=== PATIENT | female | born 1945 | race Caucasian/White ===

== ENCOUNTER 2020-06-05 13:32 | Outpatient (REF) | payer SELFPAY | END 2020-06-05 13:33 | disposition home or self-care (01) | LOC: HO.HAP 13:32 | PROVIDERS: Visit Provider Internal Medicine | DX: Z46.1 Encounter for fitting and adjustment of hearing aid (principal); H90.3 Sensorineural hearing loss, bilateral | CPT/HCPCS: 99499 ==

== ENCOUNTER 2020-07-12 14:28 | Outpatient (REF) | payer SELFPAY | END 2020-07-12 14:29 | disposition home or self-care (01) | LOC: HO.HAP 14:28 | PROVIDERS: Visit Provider Internal Medicine | DX: Z13.89 Encounter for screening for other disorder (principal) ==

== ENCOUNTER 2020-07-31 09:08 | Outpatient (REF) | payer SELFPAY ==
--- NOTE | 2020-07-31 09:20 | MHC.AU.P13 ---
Hearing Instrument Problem: Date of Visit: 07/31/20 Right Ear: Baseball Club Manager: Phonak Model: Bolero Q 70 SP BTE Serial Number: [id number] Repair Warranty: 01/29/2019 Battery Size: 13 Color: Champagne Tubin TT double bend Type of Mold: Microsonic Skeleton Left Ear: Baseball Club Manager: Phonak Model: Bolero Q 70 SP BTE Serial Number: [id number] RepairWarranty: 01/29/2019 Battery Size: 13 Color: Champagne TubinTT double bend Type of Mold: Microsonic Skeleton Summary: Patient brought in aids - tubings coming out of earmolds. Changed from 13T to 13TT double bend tubing - holding well - both aids amplifying clearly. Signature: Provider: BELLA Raza-HIS
== END 2020-07-31 09:09 | disposition home or self-care (01) ==
LOC: HO.HAP 09:08
PROVIDERS: Visit Provider Internal Medicine
DX: Z13.89 Encounter for screening for other disorder (principal)

== ENCOUNTER 2020-08-06 14:49 | Outpatient (REF) | payer MEDICARE, SELFPAY ==
[2020-08-06 16:09] LABS: Bilirubin Total 0.2 mg/dL (0.0-1.0)
[2020-08-06 16:12] LABS: Alanine Aminotransferase 16 U/L (0-31); Albumin Level 3.8 g/dL (3.5-5.0); Alkaline Phosphatase 103 U/L (39-117); Anion Gap 11 (12-20); Aspartate Amino Transferase 23 U/L (5-31); Blood Urea Nitrogen 19 mg/dL (9-16); Calcium 8.9 mg/dL (8.4-10.2); Carbon Dioxide 29 mmol/L (22-29); Chloride 108 mmol/L (96-108); Cholesterol 200 mg/dL; Estimated Glomerular Filt Rate > 60; Glucose Fasting 105 mg/dL (60-99); HDL Cholesterol 60 mg/dL; LDL Cholesterol Calculated 118 mg/dl; Potassium 4.5 mmol/L (3.3-5.1); Sodium 143 mmol/L (135-145); Total Protein 6.3 g/dL (6.5-8.0); Triglycerides 112 mg/dL
[2020-08-11 10:58] LABS: Vitamin D 25-OH, D2 <4 ng/mL; Vitamin D 25-OH, D3 54 ng/mL; Vitamin D 25-OH, Total 54 ng/mL (30-100)
== END 2020-08-06 14:50 | disposition home or self-care (01) ==
LOC: HO.LAB 14:49
PROVIDERS: PCP Internal Medicine; Visit Provider Internal Medicine
DX: E78.5 Hyperlipidemia, unspecified (principal); E55.9 Vitamin D deficiency, unspecified; Z13.1 Encounter for screening for diabetes mellitus
CPT/HCPCS: 36415; 80053; 80061; 82306

== ENCOUNTER 2021-04-17 11:27 | Outpatient (REF) | payer SELFPAY | END 2021-04-17 11:28 | disposition home or self-care (01) | LOC: HO.HAP 11:27 | PROVIDERS: Visit Provider Internal Medicine | DX: Z46.1 Encounter for fitting and adjustment of hearing aid (principal); H90.3 Sensorineural hearing loss, bilateral | CPT/HCPCS: 99499 ==

== ENCOUNTER 2021-06-04 11:10 | Outpatient (REF) | payer SELFPAY | END 2021-06-04 11:11 | disposition home or self-care (01) | LOC: HO.HAP 11:10 | PROVIDERS: Visit Provider Internal Medicine | DX: Z46.1 Encounter for fitting and adjustment of hearing aid (principal); H90.3 Sensorineural hearing loss, bilateral | CPT/HCPCS: 99499 ==

== ENCOUNTER 2021-07-05 10:04 | Emergency (ER) | payer MEDICARE, SELFPAY ==
--- NOTE | ~2021-07-05 | XR_ITS ---
EXAMINATION: XR SHOULDER, RIGHT CLINICAL INFORMATION: Status post fall. Pain. COMPARISON: None TECHNIQUE: Three views of the right shoulder. FINDINGS: Marked diffuse osteopenia is noted involving all the visualized bones. Comminuted impacted fractures are noted at the proximal right humerus. The glenohumeral alignment is intact. The acromioclavicular alignments are intact. XR/XR shoulder RT min 2V IMPRESSION: Comminuted fractures involving the proximal right humerus.
[2021-07-05 10:10] VITALS: BP 154/83; PULSE 97; RESP 18; TEMP 36.9; O2SAT 100; BMI 24.7
--- NOTE | 2021-07-05 10:37 | ED_ITS ---
HPI - Fall General Chief Complaint: Fall Stated Complaint: fall r arm inj Time Seen by Provider: 07/05/21 10:17 Source: patient Mode of arrival: ambulatory Limitations: no limitations History of Present Illness HPI Narrative: 75-year-old female with a history of high cholesterol here with reports of right shoulder pain after slip and fall on the ice 30 minutes prior to arrival. Patient denies head strike or loss of consciousness. The patient tells me that she landed on the posterior right shoulder and since then she has had pain with difficulty with range of motion. No numbness, tingling, weakness of the e xtremity. The patient is not on any anticoagulation Related Data Previous Rx's Medication Instructions Recorded acetaminophen 300 mg-codeine 15 mg 1 tab PO Q6H PRN #5 tab 07/05/21 tablet acetaminophen 325 mg tablet 650 mg PO Q4H PRN #20 tab 07/05/21 (Tylenol) Allergies Allergy/AdvReac Type Severity Reaction Status Date / Time seasonal Allergy Unknown Unknown Uncoded 07/26/20 13:22 Review of Systems Verdana 4l Review of Systems: Yes all other systems are reviewed and Verdana 4d are negative Verdana 4l Constitutional: Verdana 4d Constitutional: Verdana 4d Verdana 4d Reports no additional constitutional complaints, Denies body ache(s), Denies chills, Denies fever(s), Denies headache(s) and Denies weakness Verdana 4l Eyes: Verdana 4d Verdana 4d Eyes: Verdana 4d Reports no additional eye complaints and Denies change in vision Verdana 4l ENT: Verdana 4d Reports system reviewed and no additional complaints, except as documented, Denies dizziness, Denies headache(s), Denies nasal congestion, Denies nasal discharge and Denies neck pain Verdana 4l Cardiovascular: Verdana 4d Cardiovascular: Verdana 4d Verdana 4d Reports no additional cardiovascular complaints, Denies chest pain, Denies leg edema and Denies dyspnea Verdana 4l Respiratory: Verdana 4d Verdana 4d Respiratory: Verdana 4d Reports no additional respiratory complaints, Denies cough and Denies dyspnea Verdana 4l Gastrointestinal: Verdana 4d Gastrointestinal: Verdana 4d Verdana 4d Reports no additional gastrointestinal complaints, Denies abdominal pain, Denies diarrhea, Denies nausea and Denies vomiting Verdana 4l Genitourinary: Verdana 4d Verdana 4d Genitourinary: Verdana 4d Reports no additional female genitourinary complaints and Denies urinary incontinence Verdana 4l Musculoskeletal: Verdana 4d Musculoskeletal: Verdana 4d Verdana 4d Reports no additional musculoskeletal complaints, Denies back pain, Reports arthralgias, Reports joint swelling, Reports limited range of motion, Denies neck pain, Denies numbness and Denies tingling Verdana 4l Integumentary/Breasts: Verdana 4d Skin/Breast: Verdana 4d Verdana 4d Reports system reviewed and no additional complaints, except as docu and Denies rash Verdana 4l Neurologic: Verdana 4d Reports system reviewed and no additional complaints, except as documented, Denies Abnormal speech present, Denies dizziness, Denies headache(s), Denies numbness, Denies tingling and Denies weakness PMFSH Past Medical History Attestation statement: The following information was validated with the patient. Source: old records reviewed and nursing notes reviewed Medical History Dyslipidemia Hypovitaminosis D Leukopenia Surgical History No pertinent past surgical history Family History Family History Father No problems noted. Mother Hypertension Stroke Brother No problems noted. Brother No problems noted. Sister No problems noted. Sister No problems noted. Social History Social History Advance Directives: Yes Advance Directives Information Provided: No Advance Directives on File: No Physical Exam Verdana 4l Vital Signs: Verdana 4d Verdana 4d Vital Signs: Verdana 4d Verdana 4Bd Last Vital Signs Verdana 4d Bakery Assistant New 4d Bakery Assistant New 4d Temp 98.4 F 07/05/21 10:10 Bakery Assistant New 4d Pulse 97 07/05/21 10:10 Bakery Assistant New 4d Resp 17 07/05/21 11:36 BP 154/83 H 07/05/21 10:10 Pulse Ox 100 07/05/21 10:10 BMI result Body Mass Index 24.7 Const: General: cooperative, healthy appearing, comfortable and no acute distress Orientation/consciousness: patient oriented x3 Limitations: no limitations HENMT: Head: Yes normal to inspection Ears: hearing grossly normal bilaterally General nose exam: Normal external nose present Face and sinus: Yes normal facial exam Mouth: Normal oral and palatal mucosa present Throat: Yes posterior oropharynx normal Eyes: General: appearance normal, both eyes and all related structures Pupils: Equal, round and reactive pupils present Neck: Neck: Yes normal visual inspection Chest: Chest palpation & inspection: normal inspection of the chest Resp: Effort & Inspection: normal respiratory effort Auscultation: clear to ausc ultation bilaterally Cardio: Rate: regular rate Rhythm: regular rhythm Peripheral pulses: Peripheral pulses 2+ throughout GI: Inspection: Yes normal to inspection Palpation (GI): Soft to palpation and nontender Auscultation: normal bowel sounds Back/Spine/Pelvis: Thoracic/Lumbar Spine: thoracic and lumbar spine normal to inspection Skin: General skin exam: no rashes or lesions noted Neuro: General: patient oriented x3, no focal motor deficits and normal sensation to monofilament Cranial nerves: Yes Equal, round and reactive pupils present Cognition (Neuro): normal cognition Speech: No Abnormal speech present Gait exam (Neuro): Normal gait present Motor exam (neuro): 5/5 motor strength present throughout Extrem: Other: To the right shoulder there is a deformity. The shoulder appears to be anteriorly displaced. There is limited range of motion due to pain. There is tenderness over the proximal humerus. There is no ecchymosis, warmth or redness. Palpable axillary, radial and ulnar pulses are palpated General: Yes normal to inspection Course Course Course Narrative: 75-year-old female here with right shoulder pain after a slip and fall on the ice just prior to arrival Will check x-rays 1130-x-ray show a comminuted right proximal humeral fracture. No evidence of dislocation. Patient placed in a sling. Spoke to brother who will come pick the patient up. Reviewed rice. Reviewed follow-up with Orthopedics. Reviewed worrisome signs symptoms of when to return to the emergency department. Comfortable discharge home. Procedures Procedure Narrative Procedure Narrative: sling MDM - Fall MDM Narrative Medical decision making narrative: Fracture, dislocation, contusion Medical Records Attestation: I reviewed the patient's medical records. Lab Data Attestation: I reviewed the patient's lab results. Imaging Data shoulder xray: Attestation: I personally reviewed and interpreted this imaging study as follows: Radiologist's impression: FINDINGS: Marked diffuse osteopenia is noted involving all the visualized bones. Comminuted impacted fractures are noted at the proximal right humerus. The glenohumeral alignment is intact. The acromioclavicular alignments are intact.? XR/XR shoulder RT min 2V IMPRESSION: Comminuted fractures involving the proximal right humerus. Discharge Plan Discharge Clinical Impression: Fracture of proximal end of right humerus Patient Disposition: Home, Self-Care Instructions: Arm Fracture in Adults (ED) Additional Instructions: Use sling for comfort Ice to the affected area Take Tylenol every 4 hours for pain. Take the stronger Tylenol as needed Follow-up with Orthopedics Prescriptions: New acetaminophen [Tylenol] 325 mg tablet 650 mg PO Q4H PRN (Reason: pain) Qty: 20 0RF acetaminophen-codeine 300-15 mg tablet 1 tab PO Q6H PRN (Reason: pain) Qty: 5 0RF Referrals: Javier Victor MD [Physician] - 2 days Interventions: ED Discharge Assessment Last Done: 07/05/21 12:48 Discharge Date/Time: 07/05/21 12:49
[2021-07-05] MEDS: Acetaminophen 325 MG TABLET 975 MG PO (10:51)
--- NOTE | 2021-07-05 11:26 | PC.NURSE ---
PT STATES SHE WALKED HERE AFTER FALLING OUTSIDE THIS MORNING. SHE STATES SHE DOES NOT LIVE FAR AND HAS A BROTHER IN [place] THAT WE CAN ADD TO HER CONTACTS.
[2021-07-05 11:36] VITALS: RESP 17
== END 2021-07-05 12:49 | disposition home or self-care (01) ==
PROVIDERS: Emergency Provider Emergency Medicine; PCP Internal Medicine
DX: S42.201A Unspecified fracture of upper end of right humerus, initial encounter for closed fracture (principal); W00.0XXA Fall on same level due to ice and snow, initial encounter; Y93.01 Activity, walking, marching and hiking; Y92.9 Unspecified place or not applicable; Y99.9 Unspecified external cause status
CPT/HCPCS: 73030; 99283; 99284

== ENCOUNTER → 2021-07-14 12:59 | Outpatient (BNVA) | payer MEDICARE, SELFPAY | PROVIDERS: PCP Internal Medicine; Visit Provider Physician Assistant | DX: S42.201A Unspecified fracture of upper end of right humerus, initial encounter for closed fracture (principal) | CPT/HCPCS: 99202 ==

== ENCOUNTER 2021-07-24 10:25 | Outpatient (REF) | payer MEDICARE, SELFPAY ==
[2021-07-24 10:53] LABS: MANUAL DIFF FLAG NO
[2021-07-24 11:30] LABS: Basophils Absolute Auto 0.1 X10*3/uL (0.0-0.2); Basophils Percent Auto 1.1 % (0-2); Eosinophils Percent Auto 0.8 % (0-4); Hematocrit 41.8 % (37.0-47.0); Imm Gran Abs Auto 0.01 X10*3/uL (0.00-0.03); Imm Gran Pct Auto 0.2 % (0.0-0.4); Lymphocytes Absolute Auto 0.8 X10*3/uL (1.2-4.9); Lymphocytes Percent Auto 15.8 % (20-40); Mean Corpuscular HGB Conc 31.1 g/dl (31.0-35.0); Mean Corpuscular Hemoglobin 27.7 pg (27.0-33.0); Mean Corpuscular Volume 89.1 fL (80.0-98.0); Mean Platelet Volume 9.5 fL (9.4-12.3); Monocytes Absolute Auto 0.5 X10*3/uL (0.1-1.2); Monocytes Percent Auto 10.3 % (2-11); Neutrophils Absolute Auto 3.4 x10*3/uL (2.0-8.3); Neutrophils Percent Auto 71.8 % (45-73); Platelet Count 268 X10*3/uL (160-400); Red Blood Count 4.69 X10*6/uL (4.20-5.50); Red Cell Distribution Width 13.8 % (11.0-16.0); White Blood Count 4.8 X10*3/uL (4.8-10.8)
[2021-07-24 11:55] LABS: Alanine Aminotransferase 19 U/L (0-31); Alkaline Phosphatase 125 U/L (39-117); Anion Gap 14 (12-20); Aspartate Amino Transferase 22 U/L (5-31); Bilirubin Total 0.9 mg/dL (0.0-1.0); Blood Urea Nitrogen 15 mg/dL (9-16); Calcium 9.6 mg/dL (8.4-10.2); Carbon Dioxide 28 mmol/L (22-29); Chloride 103 mmol/L (96-108); Cholesterol 212 mg/dL; Estimated Glomerular Filt Rate > 60; Glucose Fasting 100 mg/dL (60-99); HDL Cholesterol 68 mg/dL; LDL Cholesterol Calculated 130 mg/dl; Potassium 4.6 mmol/L (3.3-5.1); Sodium 140 mmol/L (135-145); Total Protein 6.7 g/dL (6.5-8.0); Triglycerides 70 mg/dL
[2021-07-28 13:36] LABS: Vitamin D 25-OH, D2 <4 ng/mL; Vitamin D 25-OH, D3 50 ng/mL; Vitamin D 25-OH, Total 50 ng/mL (30-100)
== END 2021-07-24 10:26 | disposition home or self-care (01) ==
LOC: HO.LAB 10:25
PROVIDERS: PCP Internal Medicine; Visit Provider Internal Medicine
DX: D72.819 Decreased white blood cell count, unspecified (principal); E78.5 Hyperlipidemia, unspecified; E55.9 Vitamin D deficiency, unspecified
CPT/HCPCS: 36415; 80053; 80061; 82306; 85025

== ENCOUNTER 2021-08-15 07:58 | Outpatient (REF) | payer MEDICARE, SELFPAY ==
--- NOTE | ~2021-08-15 | XR_ITS ---
EXAMINATION: XR SHOULDER, RIGHT CLINICAL INFORMATION: Pain. COMPARISON: Radiographs dated 07/05/2021. TECHNIQUE: AP and scapular Y of the right shoulder are submitted. FINDINGS: There is bony demineralization. A comminuted fracture is redemonstrated of the right humeral neck. There is increased, now mild lateral angulation of the shaft relative to the head. There is no new significant callus formation. No dislocation is seen. No foreign body is seen. Mild pulmonary fibrosis is questioned. XR/XR shoulder RT min 2V IMPRESSION: A comminuted fracture is redemonstrated of the right humeral neck. There is increased, mild lateral angulation. No significant new callus formation is seen
== END 2021-08-15 07:59 | disposition home or self-care (01) ==
LOC: HO.HOSX 07:58
PROVIDERS: Visit Provider Physician Assistant
DX: S42.201D Unspecified fracture of upper end of right humerus, subsequent encounter for fracture with routine healing (principal)
CPT/HCPCS: 73030; 99212

== ENCOUNTER 2021-09-11 10:00 | Outpatient (RCR) | payer MEDICARE, SELFPAY ==
--- NOTE | 2021-08-07 11:21 | MHC.PT.EP ---
[facility] [place] Office [place] Office [place] Office [address] Charu Cardenas [address] [phone] F: [phone] F: [phone] F: [phone] F: [phone] Physical Therapy Plan of Care Date of Evaluation: Date of Surgery: Diagnosis: R humeral fx 07/05/21 Assessment: 76 y/o RHD female s/p R shoulder pain after lip and fall on ice on 07/05/21. She went to ED and x-rays taken showing R comminuted impacted humeral fracture. She was given a sling but only wore it for one day. Currently she has some pain and difficulty with dressing, reaching overhead, grooming and driving. Examination shows decreased R shoulder P/AAROM, decreased strength R UE (not formally tested), elbow AROM WNL, pain,and impaired postural awareness. Recommend PT 2x/week for 6 weeks to address impairments, implement HEP, and optimize functional mobility. She has been actively using her R UE and vacuuming - educated pt regarding precautions, healing timeline for fx, and purpose of PT. Frequency and Duration: The patient will be seen 2x/week for 6 week Short Term Goals: 3 weeks 1. Initiate HEP 2. Improve R shoulder flexion to 120 AA 3. Improve R shoulder flexion to 100 actively Half-Way Goals: 6 weeks 1. I with HEP and self management of sx 2. Pt will be able to groom and curl hair with pain < 3/10 3. Pt will be able to reach into overhead cabinets with pain < 3/10 Treatment Plan: Modalities to reduce pain, spasms and effusion. Manual therapy to restore motion and function. Therapeutic exercise to improve strength and flexibility. Neuromuscular re-education for posture and balance. Therapeutic activities to return to functional activities of daily living. Electronically signed by: Marry Pickering PT Please sign and return to therapist. Thank you for your referral.
--- NOTE | 2021-11-10 13:01 | MHC.PT.DC ---
[facility] [place] Office [place] Office [place] Office [address] Charu Cardenas [address] [phone] F: [phone] F: [phone] F: [phone] F: [phone] Physical Therapy Discharge Report Diagnosis: R humeral fx 07/05/21 Date of Surgery: 07/05/21 Date of Evaluation: 08/07/21 Date of Discharge: 11/10/21 Treatments to Date: 10 Cancellations to Date: 0 No Shows to Date: 0 Discharge Status: Independent with HEP Patient Elected to Stop Discharge Summary: Pt did not f/u with further visits following being placed on holds at 10 weeks post-fx. From last treatment note: We reviewed not lifting with her arm and only performing exercises to tolerance. We discussed holding PT until her next ortho visit and she will continue with I HEP, but again avoiding lifting. Electronically signed by: Marry Pickering PT Please sign and return to therapist. Thank you for your referral.
== END 2021-11-10 13:01 | disposition home or self-care (01) ==
LOC: HO.PT 10:00
PROVIDERS: PCP Internal Medicine; Visit Provider Physician Assistant
DX: S42.201D Unspecified fracture of upper end of right humerus, subsequent encounter for fracture with routine healing (principal)
CPT/HCPCS: 97110; 97140; 97161

== ENCOUNTER 2021-09-26 08:21 | Outpatient (REF) | payer MEDICARE, SELFPAY ==
--- NOTE | ~2021-09-26 | XR_ITS ---
EXAMINATION: XR shoulder RT min 2V CLINICAL INFORMATION: Reason for Exam M25.511 - Pain in right shoulder COMPARISON: 08/15/2021 and 07/05/2021 shoulder radiographs TECHNIQUE: Two views of the shoulder. XR/XR shoulder RT min 2V FINDINGS/IMPRESSION: Again seen is an impacted comminuted fracture of the humeral neck in similar alignment which demonstrates bridging bony callus formation laterally, however fracture margins remain distinct. Similar degenerative changes of the shoulder worst involving the acromioclavicular joint. There is a metallic pin seen overlying the distal aspect of the right clavicle, recommend correlation with any overlying material or interval trauma. Visualized portion of lung appears clear.
== END 2021-09-26 08:22 | disposition home or self-care (01) ==
LOC: HO.HOSX 08:21
PROVIDERS: Visit Provider Physician Assistant
DX: S42.201D Unspecified fracture of upper end of right humerus, subsequent encounter for fracture with routine healing (principal)
CPT/HCPCS: 73030; 99212

== ENCOUNTER 2022-03-17 10:41 | Outpatient (REF) | payer SELFPAY ==
--- NOTE | 2022-03-17 11:37 | MHC.AU.HFU ---
Hearing Instrument Follow-Up- Binaural Date of Visit: 03/17/22 Right Ear: Float Tender: Phonak Model: Bolero Q 70 SP BTE Serial Number: [id number] Repair Warranty: 01/29/2019 Battery Size: 13 Color: Champagne Tubin TT double bend Type of Mold: Microsonic Skeleton Dispensed By: [facility] Date of Fittin11/19/2014 Left Ear: Float Tender: Phonak Model: Bolero Q 70 SP BTE Serial Number: [id number] Repair Warranty: 01/29/2019: Battery Size: 13 Color: Champagne TubinTT double bend Type of Mold: Microsonic Skeleton Dispensed By: [facility] Date of Fittin11/19/2014 Follow-Up Summary: Performed hearing aid maintenance for both aids, changing tubing, cleaning contacts and microphones, both aids amplifying well. Patient paid $10.00. DISCUSSED THE FEE FOR SERVICE CHANGE IN EFFECT FOR NEXT VISIT so the next maintenance appointment charge will be $50.00 Patient reports increased feedback from the left aid. Otoscopy shows mostly occluding cerumen. Recommendations:Since there is a charge for cerumen removal, she will go to Dr. Yu'sahara for cerumen removal and a hearing test. She will then schedule an appointment for hearing aid reprogramming for which she was quoted at least $90.00 Diagnosis Code(s):Primary Diagnosis: H90.3 Bilateral Sensorineural Hearing Loss Services Performed:LEE Non-Quantity Charges: [facility] [place]EE Charge (V5299) Signature:Provider: Mahin Stewart, [facility]
== END 2022-03-17 10:42 | disposition home or self-care (01) ==
LOC: HO.HAP 10:41
PROVIDERS: Visit Provider Internal Medicine
DX: Z46.1 Encounter for fitting and adjustment of hearing aid (principal); H90.3 Sensorineural hearing loss, bilateral
CPT/HCPCS: 92700; V5299

== ENCOUNTER 2022-04-06 08:58 | Outpatient (REF) | payer SELFPAY | END 2022-04-06 08:59 | disposition home or self-care (01) | LOC: HO.HAP 08:58 | PROVIDERS: Visit Provider Internal Medicine | DX: Z46.1 Encounter for fitting and adjustment of hearing aid (principal); H90.3 Sensorineural hearing loss, bilateral; H61.23 Impacted cerumen, bilateral | CPT/HCPCS: 92700 ==

== ENCOUNTER 2022-05-26 12:26 | Outpatient (REF) | payer MEDICARE, SELFPAY ==
--- NOTE | 2022-05-26 16:54 | MHC.AU.HFU ---
Hearing Instrument Follow-Up- Binaural Date of Visit: 05/26/22 Right Ear: Phonak Bolero Q 70-SP BTE #[id number] Repair Warranty: 01/29/2019 Battery Size: 13 Color: Champagne Tubin TT double bend Type of Mold: Microsonic Skeleton !3T double bend Dispensed By: [facility] Date of Fittin11/19/2014 Left Ear: Phonak Bolero Q 70-SP BTE #[id number] Repair Warranty: 01/29/2019 Battery Size: 13 Color: Champagne TubinTT double bend Type of Mold: Microsonic Skeleton !3T double bend Dispensed By: [facility] Date of Fittin11/19/2014 Follow-Up Summary: The patient was here for a hearing evaluation and hearing aid check. Hearing has grossly declined as compared to the patient's 2015 audiogram. Upon arrival, she dropped her left hearing aid and the tone hook snapped off. I was able to remove the portion that was stuck in the hearing aid and replaced the tone hook. I re-programmed right and left Phonak Bolero Q70 hearing aids to today's audiogram. She reported good sound bilaterally. I re-ran the feedback manager development. I also updated programming and feedback manager development for her back up Oticon Alpine BTE hearing aids. She paid $90 for programming today. I recommended follow-up with ENT to monitor her mixed hearing loss. She is followed by Dr. Yu. She is already scheduled to return for new ear mold impressions next week. No other questions or concerns reported. She was happy with today's visit. Diagnosis Code(s): Primary Diagnosis: H90.6 Mixed Hearing Loss, Bilateral Signature: Provider: Sebastián Quijano, [facility]
== END 2022-05-26 12:27 | disposition home or self-care (01) ==
LOC: HO.SH 12:26
PROVIDERS: Visit Provider Internal Medicine
DX: Z01.118 Encounter for examination of ears and hearing with other abnormal findings (principal); H90.6 Mixed conductive and sensorineural hearing loss, bilateral
CPT/HCPCS: 92557; 92567; V5020

== ENCOUNTER 2022-05-26 15:41 | Outpatient (REF) | payer SELFPAY | END 2022-05-26 15:42 | disposition home or self-care (01) | LOC: HO.HAP 15:41 | PROVIDERS: Visit Provider Internal Medicine | DX: Z13.89 Encounter for screening for other disorder (principal) ==

== ENCOUNTER 2022-05-26 16:00 | Outpatient (REF) | payer SELFPAY | END 2022-05-26 16:01 | disposition home or self-care (01) | LOC: HO.HAP 16:00 | PROVIDERS: Visit Provider Internal Medicine | DX: Z46.1 Encounter for fitting and adjustment of hearing aid (principal) | CPT/HCPCS: V5020 ==

== ENCOUNTER 2022-06-02 09:52 | Outpatient (REF) | payer SELFPAY | END 2022-06-02 09:53 | disposition home or self-care (01) | LOC: HO.HAP 09:52 | PROVIDERS: Visit Provider Internal Medicine | DX: Z13.89 Encounter for screening for other disorder (principal) ==

== ENCOUNTER 2022-06-22 12:38 | Outpatient (REF) | payer SELFPAY ==
--- NOTE | 2022-06-22 13:50 | MHC.AU.HFU ---
Hearing Instrument Follow-Up- Binaural Date of Visit: 06/22/22 Right Ear: Lap Checker: Phonak Bolero Q 70-SP BTE Chanpaulinagne #[id number] Repair Warranty: 01/29/2019 Battery Size: 13 Tubin TT double bend Type of Mold: Microsonic Skeleton remake warranty 12/10/2022 Dispensed By: [facility] Date of Fittin11/19/2014 Left Ear: Manufacture: Phonak Bolero Q 70-SP BTE Josephagne #[id number] Repair Warranty: 01/29/2019 Battery Size: 13 TubinTT double bend Type of Mold: Microsonic Skeleton remake warranty 12/10/2022 Dispensed By: [facility] Date of Fittin11/19/2014 Follow-Up Summary: Fit new binaural skeleton earmolds. The left aid is a bit full in the tragus area. Ground down the tragus area with improvement. Also needed to trim the length of the left tubing. She notes the molds are tighter and watson with a bigger helix area. Discussed in detail how the molds need to be bigger with better retention to hold sound better than the old molds for which the material has become hard and shrunk. Patient reported she did not think the aids had been cleaned at the 05/26/22 appointment as the hearing aids intermittently cut out or decrease loudness of sound. Cleaned contacts and microphones today, no charge. Left tube had noticeable water droplets and some moisture in the right. Discussed how moisture affects sound quality and ways to try to reduce moisture in the tubing. Patient thought she had already paid $135.00 at the earmold impression appointment and she thought the $135.00 was for 2 molds, not just one. Tom Lunsford checked billing of 06/02/22 billing and no payment was made. Day of earmold impression, she was quoted $245.00 for 2 molds, but patient says she only heard $135.00 She did not want to pay any additional money today for the molds. Per Tom Johnson, we will bill the patient, patient took both earmolds today. Patient says she will contact our office after checking her records. Recommendations: Please contact our clinic with any questions or concerns. Diagnosis Code(s):Primary Diagnosis: H90.3 Bilateral Sensorineural Hearing Loss Services Performed:Earmold (Quantity): 2 Signature:Provider: Mahin Stewart CCC-A
== END 2022-06-22 12:39 | disposition home or self-care (01) ==
LOC: HO.HAP 12:38
PROVIDERS: Visit Provider Internal Medicine
DX: Z46.1 Encounter for fitting and adjustment of hearing aid (principal); H90.3 Sensorineural hearing loss, bilateral
CPT/HCPCS: V5264

== ENCOUNTER 2022-09-24 08:36 | Outpatient (REF) | payer MEDICARE, SELFPAY ==
[2022-09-24 09:01] LABS: MANUAL DIFF FLAG NO
[2022-09-24 09:27] LABS: Basophils Absolute Auto 0.1 X10*3/uL (0.0-0.2); Basophils Percent Auto 1.3 % (0-2); Eosinophils Absolute Auto 0.2 X10*3/uL (0.0-0.4); Eosinophils Percent Auto 5.1 % (0-4); Hematocrit 42.2 % (37.0-47.0); Hemoglobin 13.3 g/dl (12.0-16.0); Imm Gran Abs Auto 0.02 X10*3/uL (0.00-0.03); Imm Gran Pct Auto 0.5 % (0.0-0.4); Lymphocytes Absolute Auto 0.8 X10*3/uL (1.2-4.9); Lymphocytes Percent Auto 21.8 % (20-40); Mean Corpuscular HGB Conc 31.5 g/dl (31.0-35.0); Mean Corpuscular Hemoglobin 27.7 pg (27.0-33.0); Mean Corpuscular Volume 87.9 fL (80.0-98.0); Mean Platelet Volume 10.6 fL (9.4-12.3); Monocytes Absolute Auto 0.5 X10*3/uL (0.1-1.2); Monocytes Percent Auto 12.1 % (2-11); Neutrophils Absolute Auto 2.2 x10*3/uL (2.0-8.3); Neutrophils Percent Auto 59.2 % (45-73); Platelet Count 166 X10*3/uL (160-400); Red Cell Distribution Width 13.5 % (11.0-16.0); White Blood Count 3.7 X10*3/uL (4.8-10.8)
[2022-09-24 10:04] LABS: Estimated Average Glucose 103 mg/dL; Hemoglobin A1c % 5.2 %
[2022-09-24 10:12] LABS: Alanine Aminotransferase 187 U/L (0-31); Albumin Level 3.9 g/dL (3.5-5.0); Alkaline Phosphatase 201 U/L (39-117); Anion Gap 14 (12-20); Aspartate Amino Transferase 142 U/L (5-31); Bilirubin Total 1.1 mg/dL (0.0-1.0); Blood Urea Nitrogen 17 mg/dL (9-16); Calcium 9.2 mg/dL (8.4-10.2); Carbon Dioxide 24 mmol/L (22-29); Chloride 106 mmol/L (96-108); Cholesterol 230 mg/dL; Estimated Glomerular Filt Rate > 60; Glucose Fasting 91 mg/dL (60-99); HDL Cholesterol 75 mg/dL; LDL Cholesterol Calculated 143 mg/dl; Potassium 4.3 mmol/L (3.3-5.1); Sodium 140 mmol/L (135-145); Total Protein 6.4 g/dL (6.5-8.0); Triglycerides 61 mg/dL
[2022-09-24 10:29] LABS: Vitamin D 25-OH Total 60.1 ng/mL (>30)
== END 2022-09-24 08:37 | disposition home or self-care (01) ==
LOC: HO.LAB 08:36
PROVIDERS: PCP Internal Medicine; Visit Provider Internal Medicine
DX: E11.40 Type 2 diabetes mellitus with diabetic neuropathy, unspecified (principal); D72.819 Decreased white blood cell count, unspecified; E55.9 Vitamin D deficiency, unspecified; E78.5 Hyperlipidemia, unspecified
CPT/HCPCS: 36415; 80053; 80061; 82306; 83036; 85025

== ENCOUNTER 2022-10-01 14:37 | Outpatient (REF) | payer MEDICARE, SELFPAY ==
[2022-10-01 14:49] LABS: MANUAL DIFF FLAG NO
[2022-10-01 15:44] LABS: Basophils Absolute Auto 0.1 X10*3/uL (0.0-0.2); Basophils Percent Auto 1.3 % (0-2); Eosinophils Absolute Auto 0.2 X10*3/uL (0.0-0.4); Eosinophils Percent Auto 2.9 % (0-4); Hemoglobin 12.7 g/dl (12.0-16.0); Imm Gran Abs Auto 0.01 X10*3/uL (0.00-0.03); Imm Gran Pct Auto 0.2 % (0.0-0.4); Lymphocytes Absolute Auto 1.5 X10*3/uL (1.2-4.9); Lymphocytes Percent Auto 28.7 % (20-40); Mean Corpuscular HGB Conc 31.8 g/dl (31.0-35.0); Mean Corpuscular Hemoglobin 27.4 pg (27.0-33.0); Mean Corpuscular Volume 86.4 fL (80.0-98.0); Mean Platelet Volume 10.5 fL (9.4-12.3); Monocytes Absolute Auto 0.6 X10*3/uL (0.1-1.2); Monocytes Percent Auto 12.1 % (2-11); Neutrophils Absolute Auto 2.9 x10*3/uL (2.0-8.3); Neutrophils Percent Auto 54.8 % (45-73); Platelet Count 182 X10*3/uL (160-400); Red Blood Count 4.63 X10*6/uL (4.20-5.50); Red Cell Distribution Width 13.5 % (11.0-16.0); White Blood Count 5.2 X10*3/uL (4.8-10.8)
[2022-10-01 16:27] LABS: Alanine Aminotransferase 27 U/L (0-31); Albumin Level 3.8 g/dL (3.5-5.0); Alkaline Phosphatase 144 U/L (39-117); Aspartate Amino Transferase 22 U/L (5-31); Bilirubin Direct 0.1 mg/dL (0.0-0.5); Bilirubin Total 0.4 mg/dL (0.0-1.0); Total Protein 6.2 g/dL (6.5-8.0)
== END 2022-10-01 14:38 | disposition home or self-care (01) ==
LOC: HO.LAB 14:37
PROVIDERS: PCP Internal Medicine; Visit Provider Internal Medicine
DX: D72.819 Decreased white blood cell count, unspecified (principal); R74.01 Elevation of levels of liver transaminase levels
CPT/HCPCS: 36415; 80076; 85025

== ENCOUNTER 2023-06-10 10:05 | Outpatient (AMB) | payer MEDICARE, SELFPAY ==
--- NOTE | 2023-06-10 10:09 | A.OFFPC_ITS ---
Vital Signs 06/10/23 10:11 Height 5 ft 2 in Weight 125 lb BMI 22.9 BP 110/62 Blood Pressure Location Lt brachial Position Sitting Intake Visit Reasons: follow up rescheduled from 04/28 Intake Note: Patient here for a follow up Cigar Brander Required: No Accompanied by: Self / Same As Patient Allergies seasonal Allergy (Unknown, Uncoded 06/10/23 10:25) Unknown Medication List - Last Reconciled 06/10/23 by Alfreda Bledsoe MD No Known Home Meds Tobacco use date assessed: 06/10/23 Fall risk assessment: No Falls in past year Last assessed Fall Risk: 06/10/23 Dental Screening Dental Screen Date: 06/10/23 Did you have a dental visit in the last 12 months?: Yes Did you have a dental problem in the last 6 months where you did not have access to dental care?: No Was dental information given to patient?: Patient has dentist HPI HPI Comments History of Present Illness Details This is a 77-year-old female with dyslipidemia and low vitamin-D that comes today for follow-up on her conditions. Cholesterol was elevated the last time but also HDL. Lipid panel will be repeated. Also vitamin-D levels will be repeated. Denies any chest pain or shortness of breath. No fever or cough. Declines COVID vaccine and pneumonia vaccine and also flu vaccine. [facility] Medical History (Updated 06/10/23 @ 10:42 by Alfreda Bledsoe MD) Elevated BP without diagnosis of hypertension Transaminitis Leukopenia Hypovitaminosis D Dyslipidemia Surgical History No pertinent past surgical history Family History Father No problems noted. Mother Hypertension Stroke Brother No problems noted. Brother No problems noted. Sister No problems noted. Sister No problems noted. Social History Housing: House Alcohol intake: never Patient Tobacco Use Status: Never used Tobacco e-Cigarette/Vaping Use: Never Used Second Hand Smoke Exposure: No service: No Current occupational status: retired Cognitive needs: No Hearing needs: No Vision needs: No Questionnaire PHQ-9 Over the last 2 weeks, how often have you been bothered by any of the following problems? 1. Little interest or pleasure in doing things: not at all 2. Feeling down, depressed, or hopeless: not at all 3. Trouble falling or staying asleep, or sleeping too much: not at all 4. Feeling tired or having little energy: not at all 5. Poor appetite or overeating: not at all 6. Feeling bad about yourself - or that you are a failure or have let yourself or your family down: not at all 7. Trouble concentrating on things, such as reading the newspaper or watching television: not at all 8. Moving or speaking so slowly that other people could have noticed. Or the opposite - being so fidgety or restless that you have been moving around a lot more than usual: not at all 9. Thoughts that you would be better off or of hurting yourself in some way: not at all Total score: 0 Depression Screening Interpretation: Negative Depression Screening Done: Yes 38014 - PHQ-9 Billing: Yes Source: Developed by Drs. Marcos Schmidt, Holli Loredo, Arnie Shook and colleagues, with an educational justina from [employer]. Thrive Questionnaire Date Thrive assessed: 06/10/23 I am a: Patient What is your living situation today?: I have a steady place to live Within the past 12 months, did the food you bought not last and you didn't have the money to get more?: Never true Within the past 12 months, did you worry whether your food would run out before you got money to buy more?: Never true Do you have trouble paying for medicines?: No Do you have trouble getting transportation to medical appointments?: No Do you have trouble paying your heating and electricity bill?: No Do you have trouble taking care of your child, family member or friend?: No Do you have trouble with day-to-day activities such as bathing, preparing meals, shopping, managing finances, etc.?: No Are you currently unemployed and looking for a job?: No Are you interested in more education?: No Please select the resources that you would like help with: None Currently or been in a relationship where the following occur: no concerns reported AUDIT C Alcohol Use Questionnaire (AUDIT-C) 1. How often do you have a drink containing alcohol?: Never Total Score: 0 Score Reviewed/Action Taken: No TUAN-7 AMB Questionnaire TUAN-7 Date TUAN - 7 assessed: 06/10/23 Feeling nervous, anxious, or on edge: 0 = Not at all Not being able to stop or control worryin = Not at all Worrying too much about different things: 0 = Not at all Trouble relaxin = Not at all Being so restless that it is hard to sit still: 0 = Not at all Becoming easily annoyed or irritable: 0 = Not at all Feeling afraid as if something awful might happen: 0 = Not at all Total TUAN-7 score (0-4 normal; 5-9 mild; 10-14 moderate; 15-21 severe): 0 Source: Developed by Drs. Marcos Schmidt, Holli Loredo, Arnie Shook and colleagues, with an educational justina from [employer]. TUAN-7 Assessment Billing TUAN-7 Assessment Tool: TUAN-7 Assessment 62189 Review of Systems Const All systems reviewed & are unremarkable except as noted in HPI and below Eyes Reports no additional complaints, Denies change in vision and Denies other visual disturbances Card Denies chest pain at rest, Denies chest pain with activity, Denies edema, Denies irregular heart rhythm, Denies claudication, Denies dyspnea, Denies dyspnea on exertion, Denies orthopnea, Denies paroxysmal nocturnal dyspnea and Denies slow heart rate Resp Denies cough, Denies dyspnea and Denies dyspnea on exertion GI Denies abdominal pain, Denies change in bowel habits, Denies excessive flatus, Denies nausea and Denies vomiting Denies urinary incontinence, Denies urinary hesitancy and Denies urinary urgency Musc Denies abnormal gait, Denies atrophy, Denies deformity and Denies limited range of motion Skin/Breast Denies bleeding lesions, Denies changing lesions and Denies rash Neuro Denies abnormal gait, Denies behavioral changes and Denies lack of coordination Psych Denies behavioral changes Physical exam (Primary Care) Vital Signs: Last Vital Signs BP 110/62 06/10/23 10:11 BMI result Body Mass Index 22.9 Tobacco/Smoking Status: Tobacco use Status Tobacco use date assessed 06/10/23 06/10/23 10:19 Patient Tobacco Use Status Never used Tobacco 06/10/23 10:19 Tobacco use type 06/10/23 10:19 e-Cigarette/Vaping Use Never Used 06/10/23 10:19 PHQ-9: PHQ-9 Score PHQ-9: Total score 0 06/10/23 10:29 Depression Screening Interpretation: Negative Thrive Assessment: Date of Thrive Assessment Date Thrive assessed 06/10/23 06/10/23 10:10 Currently or been in a relationship where the following occur: no concerns reported Eyes General: appearance normal, both eyes and all related structures Eyelids: Yes eyelids normal Conjunctivae: conjunctivae normal Neck Neck: Yes normal visual inspection and Yes supple Resp Effort & Inspection: normal respiratory effort Auscultation: clear to auscultation bilaterally Cardio Jugular venous distension: no JVD Rate: regular rate Rhythm: regular rhythm Heart sounds: S1 normal heart sound present and S2 normal heart sound present Extrem General: Yes full ROM Office Procedures Flu Questionnaire Does the patient have a severe egg allergy?: No Immunizations flu vacc [id number] 6mos up(PF) 60 mcg(15 mcgx4)/0.5 mL IM syringe Performing Provider: Alfreda Bledsoe MD [facility] Documented (not given) by: KAYLIN Olivera on 06/10/23 10:09 Reason Not Given: Patient Refused Assessment and Plan Assessment & Plan (1) Dyslipidemia: Code(s): E78.5 - Hyperlipidemia, unspecified Plan: Repeat lipid panel. Start low-cholesterol diet. (2) Hypovitaminosis D: Code(s): E55.9 - Vitamin D deficiency, unspecified Plan: Repeat vitamin-D levels. Orders: Orders Influenza [id number] Immunization Today Z23 - Encounter for immunization Lipid Panel Today E78.5 - Hyperlipidemia, unspecified Vitamin D 25-OH Total Today E55.9 - Vitamin D deficiency, unspecified Comprehensive [place]. Panel Fast Today E78.5 - Hyperlipidemia, unspecified Coding Level of Care Code Est Pt Level 3 (98912) Diagnoses Dyslipidemia E78.5 Hypovitaminosis D E55.9 Additional Codes TUAN-7 Assessment Billing - TUAN-7 Assessment Tool: TUAN-7 Assessment 78002 ([id number]) Time Spent (min) 18
[2023-06-10 10:11] VITALS: BP 110/62; BMI 22.9
== END 2023-06-10 10:44 | disposition home or self-care (01) ==
PROVIDERS: PCP Internal Medicine; Visit Provider Internal Medicine
DX: E78.5 Hyperlipidemia, unspecified (principal); E55.9 Vitamin D deficiency, unspecified
CPT/HCPCS: 99213

== ENCOUNTER 2023-06-10 10:43 | Outpatient (REF) | payer MEDICARE, SELFPAY ==
[2023-06-10 12:49] LABS: Alanine Aminotransferase 12 U/L (0-31); Albumin Level 3.6 g/dL (3.5-5.0); Alkaline Phosphatase 103 U/L (39-117); Anion Gap 14 (12-20); Aspartate Amino Transferase 19 U/L (5-31); Bilirubin Total 0.2 mg/dL (0.0-1.0); Blood Urea Nitrogen 17 mg/dL (9-16); Calcium 9.6 mg/dL (8.4-10.2); Carbon Dioxide 31 mmol/L (22-29); Chloride 103 mmol/L (96-108); Cholesterol 179 mg/dL (<200); Estimated Glomerular Filt Rate > 60; Glucose Fasting 91 mg/dL (60-99); HDL Cholesterol 56 mg/dL (>40); LDL Cholesterol Calculated 108 mg/dL (<100); Potassium 4.6 mmol/L (3.3-5.1); Sodium 143 mmol/L (135-145); Total Protein 6.7 g/dL (6.5-8.0); Triglycerides 79 mg/dL (<150)
== END 2023-06-10 10:44 | disposition home or self-care (01) ==
LOC: HO.LAB 10:43
PROVIDERS: PCP Internal Medicine; Visit Provider Internal Medicine
DX: E78.5 Hyperlipidemia, unspecified (principal); E55.9 Vitamin D deficiency, unspecified
CPT/HCPCS: 36415; 80053; 80061; 82306

== ENCOUNTER 2023-09-23 14:02 | Outpatient (REF) | payer SELFPAY | END 2023-09-23 14:03 | disposition home or self-care (01) | LOC: HO.HAP 14:02 | PROVIDERS: Visit Provider Internal Medicine | DX: Z13.89 Encounter for screening for other disorder (principal) ==

== ENCOUNTER 2024-03-16 12:32 | Outpatient (REF) | payer MEDICARE, SELFPAY ==
[2024-03-16 14:18] LABS: Appearance Urine Clear; Color Urine Yellow; Glucose Urine UA Negative (Negative); Leukocyte Esterase Urine Negative (Negative); Nitrite Urine Negative (Negative); PH 5.5 (5.0-9.0); Urine Blood Negative (Negative); Urine Ketones Negative (Negative); Urine Protein Negative (Neg-Trace)
== END 2024-03-16 12:33 | disposition home or self-care (01) ==
LOC: HO.LAB 12:32
PROVIDERS: PCP Internal Medicine; Visit Provider Internal Medicine
DX: R39.9 Unspecified symptoms and signs involving the genitourinary system (principal)
CPT/HCPCS: 81003

== ENCOUNTER 2024-06-12 09:52 | Outpatient (AMB) | payer MEDICARE, SELFPAY ==
[2024-06-12 10:06] VITALS: BP 118/78; BMI 20.5
--- NOTE | 2024-06-12 10:06 | MHC.PC.OV ---
Vital Signs 06/12/24 10:06 Height 5 ft 2 in Weight 112 lb BMI 20.5 BP 118/78 Blood Pressure Location Lt brachial Position Sitting Intake Visit Reasons: lipids Intake Note: Patient here for a follow up Lipids Clinical Program Consultant Required: No Accompanied by: Self / Same As Patient Allergies seasonal Allergy (Unknown, Uncoded 06/12/24 10:20) Unknown Medication List - Last Reconciled 06/12/24 by Alfreda Bledsoe MD No Known Home Meds Tobacco use date assessed: 06/12/24 Fall risk assessment: No Falls in past year Last assessed Fall Risk: 06/12/24 Dental Screening Dental Screen Date: 06/12/24 Did you have a dental visit in the last 12 months?: No Did you have a dental problem in the last 6 months where you did not have access to dental care?: No Was dental information given to patient?: Patient has dentist [facility] Medical History Elevated BP without diagnosis of hypertension Transaminitis Leukopenia Hypovitaminosis D Dyslipidemia Surgical History No pertinent past surgical history Family History Father No problems noted. Mother Hypertension Stroke Brother No problems noted. Brother No problems noted. Sister No problems noted. Sister No problems noted. Social History Housing: House Alcohol intake: never Patient Tobacco Use Status: Never used Tobacco e-Cigarette/Vaping Use: Never Used Second Hand Smoke Exposure: No service: No Current occupational status: retired Cognitive needs: No Hearing needs: No Vision needs: No Questionnaire PHQ-9 Over the last 2 weeks, how often have you been bothered by any of the following problems? 1. Little interest or pleasure in doing things: not at all 2. Feeling down, depressed, or hopeless: not at all 3. Trouble falling or staying asleep, or sleeping too much: not at all 4. Feeling tired or having little energy: not at all 5. Poor appetite or overeating: not at all 6. Feeling bad about yourself - or that you are a failure or have let yourself or your family down: not at all 7. Trouble concentrating on things, such as reading the newspaper or watching television: not at all 8. Moving or speaking so slowly that other people could have noticed. Or the opposite - being so fidgety or restless that you have been moving around a lot more than usual: not at all 9. Thoughts that you would be better off or of hurting yourself in some way: not at all Total score: 0 Depression Screening Interpretation: Negative Depression Screening Done: Yes 21456 - PHQ-9 Billing: Yes Source: Developed by Drs. Marcos Schmidt, Holli Loredo, Arnie Shook and colleagues, with an educational justina from [employer]. Thrive Questionnaire Date Thrive assessed: 06/12/24 I am a: Patient What is your living situation today?: I have a steady place to live Within the past 12 months, did the food you bought not last and you didn't have the money to get more?: Never true Within the past 12 months, did you worry whether your food would run out before you got money to buy more?: Never true Do you have trouble paying for medicines?: No Do you have trouble getting transportation to medical appointments?: No Do you have trouble paying your heating and electricity bill?: No Do you have trouble taking care of your child, family member or friend?: No Do you have trouble with day-to-day activities such as bathing, preparing meals, shopping, managing finances, etc.?: No Are you currently unemployed and looking for a job?: No Are you interested in more education?: No Please select the resources that you would like help with: None THRIVE Score: 0 AUDIT C Alcohol Use Questionnaire (AUDIT-C) 1. How often do you have a drink containing alcohol?: Never Total Score: 0 Score Reviewed/Action Taken: No TUAN-7 AMB Questionnaire TUAN-7 Date TUAN - 7 assessed: 06/12/24 Feeling nervous, anxious, or on edge: 0 = Not at all Not being able to stop or control worryin = Not at all Worrying too much about different things: 0 = Not at all Trouble relaxin = Not at all Being so restless that it is hard to sit still: 0 = Not at all Becoming easily annoyed or irritable: 0 = Not at all Feeling afraid as if something awful might happen: 0 = Not at all Total TUAN-7 score (0-4 normal; 5-9 mild; 10-14 moderate; 15-21 severe): 0 Source: Developed by Drs. Marcos Schmidt, Holli Loredo, Arnie Shook and colleagues, with an educational justina from [employer]. TUAN-7 Assessment Billing TUAN-7 Assessment Tool: TUAN-7 Assessment 88267 Physical exam (Primary Care) Vital Signs: Last Vital Signs BP 118/78 06/12/24 10:06 BMI result Body Mass Index 20.5 Tobacco/Smoking Status: Tobacco use Status Tobacco use date assessed 06/12/24 06/12/24 10:13 Patient Tobacco Use Status Never used Tobacco 06/12/24 10:13 Tobacco use type 06/10/23 10:37 e-Cigarette/Vaping Use Never Used 06/12/24 10:13 PHQ-9: PHQ-9 Score PHQ-9: Total score 0 06/12/24 10:27 Depression Screening Interpretation: Negative Thrive Assessment: Date of Thrive Assessment Date Thrive assessed 06/12/24 06/12/24 10:13 Office Procedures Flu Questionnaire Does the patient have a severe egg allergy?: No Immunizations Fluarix Triv [id number] (PF) 45 mcg (15 mcg x 3)/0.5 mL IM syringe Performing Provider: Alfreda Bledsoe MD [facility] Documented (not given) by: KAYLIN Olivera on 06/12/24 10:14 Reason Not Given: Patient Refused Coding Level of Care Code Left Without Being Seen Diagnoses Hearing loss H91.90 Additional Codes TUAN-7 Assessment Billing - TUAN-7 Assessment Tool: TUAN-7 Assessment 70708 ([id number]) PHQ-9 - 12481 - PHQ-9 Billing: Yes ([id number]) Assessment & Plan Assessment & Plan (1) Hearing loss: Code(s): H91.90 - Unspecified hearing loss, unspecified ear Category: Medical Plan: Patient was not seen today Orders: Orders Influenza [id number] Immunization Today Z23 - Encounter for immunization
== END 2024-06-12 10:28 | disposition home or self-care (01) ==
PROVIDERS: PCP Internal Medicine; Visit Provider Internal Medicine
DX: Z23 Encounter for immunization (principal)

== ENCOUNTER → 2024-06-12 09:52 | Outpatient (BNVA) | payer MEDICARE, SELFPAY | PROVIDERS: PCP Internal Medicine; Visit Provider Internal Medicine | DX: H91.90 Unspecified hearing loss, unspecified ear (principal) | CPT/HCPCS: 90471; 96127 ==

== ENCOUNTER 2024-08-17 11:10 | Outpatient (AMB) | payer MEDICARE, SELFPAY ==
[2024-08-17 11:25] VITALS: BP 118/64; PULSE 90; O2SAT 97
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
== END 2024-08-17 12:09 | disposition home or self-care (01) ==
PROVIDERS: PCP Internal Medicine; Visit Provider Internal Medicine
DX: R41.89 Other symptoms and signs involving cognitive functions and awareness (principal)

== ENCOUNTER 2024-08-17 11:10 | Outpatient (REF) | payer MEDICARE, SELFPAY ==
[2024-08-17 12:39] LABS: MANUAL DIFF FLAG NO
[2024-08-17 13:07] LABS: Basophils Percent Auto 0.9 % (0-2); Eosinophils Percent Auto 0.9 % (0-4); Hematocrit 41.5 % (37.0-47.0); Hemoglobin 13.2 g/dl (12.0-16.0); Imm Gran Abs Auto 0.01 X10*3/uL (0.00-0.03); Imm Gran Pct Auto 0.2 % (0.0-0.4); Lymphocytes Absolute Auto 0.7 X10*3/uL (1.2-4.9); Mean Corpuscular HGB Conc 31.8 g/dl (31.0-35.0); Mean Corpuscular Hemoglobin 28.3 pg (27.0-33.0); Mean Corpuscular Volume 89.1 fL (80.0-98.0); Mean Platelet Volume 10.2 fL (9.4-12.3); Monocytes Absolute Auto 0.5 X10*3/uL (0.1-1.2); Monocytes Percent Auto 11.6 % (2-11); Neutrophils Absolute Auto 3.2 x10*3/uL (2.0-8.3); Neutrophils Percent Auto 70.4 % (45-73); Platelet Count 185 X10*3/uL (160-400); Red Blood Count 4.66 X10*6/uL (4.20-5.50); Red Cell Distribution Width 14.1 % (11.0-16.0); White Blood Count 4.5 X10*3/uL (4.8-10.8)
[2024-08-17 13:54] LABS: Appearance Urine Clear; Color Urine Yellow; Glucose Urine UA Negative (Negative); Leukocyte Esterase Urine Negative (Negative); Nitrite Urine Negative (Negative); PH 5.5 (5.0-9.0); Specific Gravity - Urine 1.025 (1.005-1.025); Urine Blood Negative (Negative); Urine Ketones Trace mg/dL (Negative); Urine Protein Negative (Neg-Trace)
[2024-08-17 14:03] LABS: Alanine Aminotransferase 21 U/L (0-31); Albumin Level 3.7 g/dL (3.5-5.0); Alkaline Phosphatase 78 U/L (39-117); Anion Gap 8 (12-20); Aspartate Amino Transferase 25 U/L (5-31); Bilirubin Total 0.5 mg/dL (0.0-1.0); Blood Urea Nitrogen 22 mg/dL (9-16); Carbon Dioxide 27 mmol/L (22-29); Chloride 109 mmol/L (96-108); Cholesterol 189 mg/dL (<200); Estimated Glomerular Filt Rate > 60; Glucose Fasting 93 mg/dL (60-99); HDL Cholesterol 64 mg/dL (>40); LDL Cholesterol Calculated 111 mg/dL (<100); Potassium 4.4 mmol/L (3.3-5.1); Sodium 140 mmol/L (135-145); Total Protein 6.7 g/dL (6.5-8.0); Triglycerides 70 mg/dL (<150)
[2024-08-17 14:08] LABS: TSH reflex Free T4 0.77 uIU/mL (0.32-4.0); Vitamin D 25-OH Total 37.6 ng/mL (>30)
[2024-08-17 14:10] LABS: Vitamin B12 255 pg/mL (200-900)
== END 2024-08-17 11:11 | disposition home or self-care (01) ==
LOC: HO.LAB 11:10
PROVIDERS: PCP Internal Medicine; Visit Provider Internal Medicine
DX: F03.90 Unspecified dementia, unspecified severity, without behavioral disturbance, psychotic disturbance, mood disturbance, and anxiety (principal); D64.9 Anemia, unspecified; E78.00 Pure hypercholesterolemia, unspecified; E53.8 Deficiency of other specified B group vitamins; E55.9 Vitamin D deficiency, unspecified; R30.0 Dysuria; Z13.30 Encounter for screening examination for mental health and behavioral disorders, unspecified
CPT/HCPCS: 36415; 80053; 80061; 81003; 82306; 82607; 82746; 84443; 85025; 96127; 99212

== ENCOUNTER 2024-09-11 07:37 | Outpatient (REF) | payer MEDICARE, SELFPAY ==
--- NOTE | ~2024-09-11 | CT_ITS ---
CLINICAL HISTORY: F03.90 - Unspecified dementia, unspecified severity, without behavioral ... CT head without contrast Comparison: None Findings: No intra-axial mass, midline shift, hydrocephalus, or acute hemorrhage. No significant atrophy-like change or white matter disease. The visualized paranasal sinuses and mastoid air cells are normal. The orbits are within normal limits. There is no acute fracture. IMPRESSION: 1. No acute intracranial findings. This document has been electronically signed by: Marcelina Rosas MD on 09/11/2024 15:31:12
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
== END 2024-09-11 07:38 | disposition home or self-care (01) ==
LOC: HO.CT 07:37
PROVIDERS: PCP Internal Medicine; Visit Provider Internal Medicine
DX: F03.90 Unspecified dementia, unspecified severity, without behavioral disturbance, psychotic disturbance, mood disturbance, and anxiety (principal)
CPT/HCPCS: 70450

== ENCOUNTER → 2024-09-11 07:37 | Outpatient (BNV) | payer MEDICARE, SELFPAY | PROVIDERS: PCP Internal Medicine; Visit Provider Radiology Diagnostic Radiology | DX: F03.90 Unspecified dementia, unspecified severity, without behavioral disturbance, psychotic disturbance, mood disturbance, and anxiety (principal) | CPT/HCPCS: 70450 ==

== ENCOUNTER 2024-10-19 11:48 | Outpatient (REF) | payer MEDICARE, SELFPAY ==
--- NOTE | ~2024-10-19 | MR_ITS ---
EXAMINATION: MR BRAIN WITHOUT CONTRAST CLINICAL INFORMATION: Memory loss. [facility] COMPARISON: August 25, 2017. TECHNIQUE: MRI of the brain was obtained using routine sequences without contrast. FINDINGS: No restricted diffusion. No acute intracranial hemorrhage, mass effect, midline shift, hydrocephalus or herniation. Prominence of the extra-axial CSF spaces, cerebral sulci and ventricles. Hyperintense T2 FLAIR signal within the right frontal white matter. Patchy and confluent deep periventricular white matter hyperintense T2 FLAIR signal involving mostly the parieto-occipital lobes. Posterior cranial fossa contents demonstrated no signal abnormality or mass effect. Sellar/suprasellar region demonstrated the superiorly convexed pituitary gland measuring less than 6 mm in maximal dimension. Craniocervical junction demonstrates normal position of the cerebellar tonsils. Flow-void signal within the main cerebral vessels is normal. Codominant left vertebral artery. There is volume loss of the hippocampi without FLAIR signal abnormality. No hyperintense STIR or restricted diffusion signal abnormality within the bony calvarium.. MR/MR head/brain wo con IMPRESSION: White matter disease likely related to small vessel occlusive disease. Global cerebral atrophy, mild to moderate. Bone marrow inhomogeneity without restricted diffusion. Consider calcium metabolic disorder. Lymphoproliferative disorder cannot be excluded. Overall no gross change. Electronically signed by: Jasiel Carrillo MD 10/19/2024 12:59 PM EDT
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
== END 2024-10-19 11:49 | disposition home or self-care (01) ==
LOC: HO.MRI 11:48
PROVIDERS: Visit Provider Psychiatry & Neurology Neurology
DX: G31.84 Mild cognitive impairment of uncertain or unknown etiology (principal)
CPT/HCPCS: 70551

== ENCOUNTER → 2024-10-19 12:01 | Outpatient (BNV) | payer MEDICARE, SELFPAY | PROVIDERS: Visit Provider Radiology Diagnostic Radiology | DX: G93.89 Other specified disorders of brain (principal); D61.89 Other specified aplastic anemias and other bone marrow failure syndromes; R90.82 White matter disease, unspecified | CPT/HCPCS: 70551 ==

== ENCOUNTER 2024-11-03 09:22 | Outpatient (REF) | payer SELFPAY ==
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
== END 2024-11-03 09:23 | disposition home or self-care (01) ==
LOC: HO.HAP 09:22
PROVIDERS: Visit Provider Internal Medicine
DX: Z46.1 Encounter for fitting and adjustment of hearing aid (principal); H90.3 Sensorineural hearing loss, bilateral
CPT/HCPCS: V5266

== ENCOUNTER 2024-11-20 17:04 | Emergency (ER) | payer MEDICARE, SELFPAY ==
--- NOTE | 2024-11-20 17:57 | ED_ITS ---
HPI - General Adult General Chief complaint: Altered Mental Status Stated complaint: was found by bystander Time Seen by Provider: 11/20/24 18:51 Source: patient Mode of arrival: ambulatory Limitations: no limitations History of Present Illness ED Provider: DR. Fritz HPI narrative: This is a 79-year-old by herself patient normally active and functional at home, during the interview patient is awake, alert, and oriented x4 patient knows that she is in the hospital but does not know why when I explained to her that wandering in the street by bystanders patient stated that she walked to [facility] [employer] this morning, patient has been walking all morning admit that it was hot outside that is been drinking enough water. Patient now has no complaints. No headache, no neck pain, no chest pain, no abdominal pain, no shortness of breath, declined profuse sweating or feeling hot now. 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 No headache, no blurry vision, no double vision, no neck pain, no chest pain, no shortness of breath, no abdominal pain, no dysuria, no frequency urination. Related Data Home Medications ?Medication ?Instructions ?Recorded ?Confirmed No Known Home Meds 06/10/23 08/17/24 Allergies Allergy/AdvReac Type Severity Reaction Status Date / Time seasonal Allergy Unknown Unknown Uncoded 11/20/24 18:02 Review of Systems 2 Review of Systems: All other systems are reviewed and are negative Constitutional: Reports as per HPI and Reports no additional constitutional complaints Eyes: Reports as per HPI and Reports no additional eye complaints Reports system reviewed and no additional complaints, except as documented Cardiovascular: Reports as per HPI and Reports no additional cardiovascular complaints Respiratory: Reports as per HPI and Reports no additional respiratory complaints Gastrointestinal: Reports as per HPI and Reports no additional gastrointestinal complaints Genitourinary: Reports no additional female genitourinary complaints Musculoskeletal: Reports no additional musculoskeletal complaints Skin/Breast: Reports system reviewed and no additional complaints, except as docu Psychiatric: Reports no additional psychiatric complaints Endocrine: Reports no additional endocrine complaints Hematologic/Lymphatic: Reports no additional hematologic/lymphatic complaints Allergic/Immunologic: Reports no additional allergic/immunologic complaints Reports system reviewed and no additional complaints, except as documented and Reports Abnormal speech present [facility] Past Medical History Medical History Elevated BP without diagnosis of hypertension Transaminitis Leukopenia Hypovitaminosis D Dyslipidemia Surgical History No pertinent past surgical history Family History Family History Father No problems noted. Mother Hypertension Stroke Brother No problems noted. Brother No problems noted. Sister No problems noted. Sister No problems noted. Social History Social History Housing: House Alcohol intake: former Patient Tobacco Use Status: Never used Tobacco Smoked in Last 30 Days: No e-Cigarette/Vaping Use: Never Used Second Hand Smoke Exposure: No Use of substances other than those prescribed or required for medical reasons: No Advance Directives: Yes Advance Directives on File: Yes Advance Directives Date on File: 08/07/21 service: No Current occupational status: retired Current occupational exposures/hazards: No Cognitive needs: No Hearing needs: No Vision needs: No Physical Exam ED Vital Signs: Vital Signs - 24 hr 11/20/24 17:59 Temperature 97.9 F Pulse Rate 81 Respiratory Rate 18 Blood Pressure 124/66 Pulse Oximetry 97 Oxygen Delivery Method Room Air BMI result Body Mass Index 23.2 Vital signs have been reviewed and appear to be correct. Blood pressure elevated. Heart rate normal. Respiratory rate normal. Temperature normal. Oxygen saturation normal. Appearance: Alert. Oriented X3. No acute distress. Head: Normal external exam. Normocephalic. Atraumatic. No Nelson signs noted. No raccoon eyes noted Eyes: PERRLA. EOMI. Conjunctiva and sclera normal. Eyelids normal. ENT: TM's Normal. Pharynx normal. Uvula midline. Moist mucous membranes. No trismus noted. No drooling noted. No muffled voice noted. Neck: Normal inspection. Neck supple. FROM. No adenopathy. Thyroid Normal. No meningeal signs. No neck mass noted. CVS: Normal heart rate and rhythm. Heart sound normal. No murmurs noted. Pulses normal throughout. Respiratory: No respiratory distress. Painless inspiration. Breath sounds normal. No wheezes/rales/rhonchi noted. Chest nontender. No accessory muscle usage noted or decreased air movement noted. Abdomen: Soft and nontender. Bowel sounds normal in all 4 quadrants. No distention noted. No organomegaly noted. No visible injury noted. Back: No CVA tenderness. Full range of motion noted. Skin: Skin warm and dry. Normal skin color. Normal skin turgor. No rashes/lesions/lacerations noted. Extremities: No lower extremity edema. Extremities exhibit normal range of motion. Extremities nontender. Neuro: Oriented X 3. Cranial nerve exam: Mental status: Normal attention, orientation, memory, and affect. Cranial nerves: Pupils are equal, round and reactive to light, EOMI, visual flores are fall, face is symmetric, facial sensations are normal. Motor examination normal muscle tone, strength to 4 extremities. DTR are +2, planter's are flexor. Sensory exam; normal coordination, no ataxia, gait stable. Cerebellar exam: Zuuzan-od-mjcn and cdwz-lb-vqie is normal. Extrapyramidal system: No tremors, no rigidity with normal facial expressions. Pronator drift not present Course Course Course Narrative: This is an RME: Additional HPI, ROS, PE not included below will be deferred to primary provider. RME assessment and note performed by: Carley Zaragoza PA-C This is a 89-sgat-lpf-female who presents to the ER after being found walking around in [place]. She was found in [place] walking outdoors and others were helping her ambulate, a bystander brought her in for evaluation. She does not remember the events leading up to her arriving here in the emergency room. Pt was seen in July at Dr. Noonan for evaluation of mental capacity. Plan: Reevaluation(s) Reevaluation #1: Repeat neuro exam: Mental status: Normal attention, orientation, memory, and affect. Cranial nerves: Pupils are equal, round and reactive to light, EOMI, visual flores are fall, face is symmetric, facial sensations are normal. Motor examination normal muscle tone, strength to 4 extremities. DTR are +2, planter's are flexor. Sensory exam; normal coordination, no ataxia, gait stable. Cerebellar exam: Odwuxc-wp-seqt and svmj-yd-diew is normal. Extrapyramidal system: No tremors, no rigidity with normal facial expressions. Pronator drift not present. Now is AAO x3, as patient stated that she was walking all morning in the hot weather and probably that is what made her disoriented and confused, I spoke with a family member who will give the patient ride home, no significant abnormality in the patient workup. UA is showing 3-5 RBCs 6-10 WBCs patient has no dysuria, no frequency urination, no hematuria. Patient was instructed to drink fluids no indication for antibiotic at this point. Time: 19:56 Medical Decision Making Differential Diagnosis Differential Diagnoses: The differential diagnosis associated with the presentation includes (Heat exhaustion , dehydration, electrolyte derangement, UTI, neurological deficit, severe anemia.) Admission/Observation Consideration of admission/observation: Escalation of care including admission/observation considered Lab Data MDM Lab Attestation statement: I reviewed the patient's lab results. 11/20/24 18:34 11/20/24 18:34 Labs: Lab Results 11/20/24 11/20/24 Range/Units 18:34 19:05 WBC 6.2 (4.8-10.8) X10*3/uL RBC 4.77 (4.20-5.50) X10*6/uL Hgb 13.8 (12.0-16.0) g/dl Hct 43.0 (37.0-47.0) % MCV 90.1 (80.0-98.0) fL MCH 28.9 (27.0-33.0) pg MCHC 32.1 (31.0-35.0) g/dl RDW 13.1 (11.0-16.0) % Plt Count 155 L (160-400) X10*3/uL MPV 9.7 (9.4-12.3) fL Immature Gran % (Auto) 0.2 (0.0-0.4) % Neut % (Auto) 82.3 H (45-73) % Lymph % (Auto) 9.3 L (20-40) % Saline % (Auto) 7.1 (2-11) % Eos % (Auto) 0.3 (0-4) % Baso % (Auto) 0.8 (0-2) % Lymph # (Auto) 0.6 L (1.2-4.9) X10*3/uL Saline # (Auto) 0.4 (0.1-1.2) X10*3/uL Eos # (Auto) 0.0 (0.0-0.4) X10*3/uL Baso # (Auto) 0.1 (0.0-0.2) X10*3/uL Abs Immat Gran (auto) 0.01 (0.00-0.03) X10*3/uL Absolute Neuts (auto) 5.1 (2.0-8.3) x10*3/uL Absolute Nucleated RBC 0.000 (0.0-0.012) X10*3/uL Nucleated RBC % (auto) 0.0 (0.0-0.2) /100WBC Sodium 142 (135-145) mmol/L Potassium 4.4 (3.3-5.1) mmol/L Chloride 106 (96-108) mmol/L Carbon Dioxide 26 (22-29) mmol/L Anion Gap 14 (12-20) BUN 19 H (9-16) mg/dL Creatinine 0.86 (0.5-1.4) mg/dL Estim Creat Clear Calc 44.3 Estimated GFR > 60 Random Glucose 104 (60-115) mg/dL Calcium 9.4 (8.4-10.2) mg/dL Magnesium 2.2 (1.6-2.6) mg/dL Total Bilirubin 0.4 (0.0-1.0) mg/dL Direct Bilirubin 0.2 (0.0-0.5) mg/dL AST 26 (5-31) U/L ALT 18 (0-31) U/L Alkaline Phosphatase 96 (39-117) U/L Ammonia 25 (13-55) umol/L Total Creatine Kinase 92 (26-140) U/L Troponin I High Sens 3.1 (<3.5-17.0) ng/L Total Protein 6.6 (6.5-8.0) g/dL Albumin 3.9 (3.5-5.0) g/dL Urine Color Yellow Urine Appearance Clear Urine pH 6.0 (5.0-9.0) Ur Specific Beasley 1.025 (1.005-1.025) Urine Protein 30 (1+) H (Neg-Trace) mg/dL Urine Glucose (UA) Negative (Negative) mg/dL Urine Ketones Trace (Negative) mg/dL Urine Blood Negative (Negative) Urine Nitrite Negative (Negative) Ur Leukocyte Esterase Small (1+) H (Negative) Urine RBC 3-5 H (0-2) /HPF Urine WBC 6-10 H (0-5) /HPF Ur Squamous Epith Cells 0-2 (0-2) /HPF Urine Bacteria None Seen (None Seen) Hyaline Casts 3-5 (0-2) /LPF Discharge Plan Discharge Clinical Impression: Heat exhaustion Patient Disposition: Home, Self-Care Instructions: Heat Exhaustion (ED) Additional Instructions: Drink plenty of fluids, avoid heat.. Prescriptions: No Action No Known Home Meds Print Language: Greenlandic
[2024-11-20 17:59] VITALS: BP 124/66; PULSE 81; RESP 18; TEMP 36.6; O2SAT 97; BMI 23.2
--- NOTE | 2024-11-20 18:05 | ECG_ITS ---
Test Reason : ams Blood Pressure : */* mmHG Vent. Rate : 77 BPM Atrial Rate : 77 BPM P-R Int : 168 ms QRS Dur : 84 ms QT Int : 372 ms P-R-T Axes : 62 52 61 degrees QTcB Int : 420 ms Normal sinus rhythm Minimal voltage criteria for LVH, may be normal variant ( Sokolow-Estrella ) Borderline ECG No previous ECGs available Referred By: Carley Zaragoza Electronically Signed By: AMANDA HERRERA
--- NOTE | 2024-11-20 18:15 | PC.NURSE ---
voice mail left for Brother.
[2024-11-20 18:39] LABS: MANUAL DIFF FLAG NO
[2024-11-20 18:41] LABS: Basophils Absolute Auto 0.1 X10*3/uL (0.0-0.2); Basophils Percent Auto 0.8 % (0-2); Eosinophils Percent Auto 0.3 % (0-4); Hemoglobin 13.8 g/dl (12.0-16.0); Imm Gran Abs Auto 0.01 X10*3/uL (0.00-0.03); Imm Gran Pct Auto 0.2 % (0.0-0.4); Lymphocytes Absolute Auto 0.6 X10*3/uL (1.2-4.9); Lymphocytes Percent Auto 9.3 % (20-40); Mean Corpuscular HGB Conc 32.1 g/dl (31.0-35.0); Mean Corpuscular Hemoglobin 28.9 pg (27.0-33.0); Mean Corpuscular Volume 90.1 fL (80.0-98.0); Mean Platelet Volume 9.7 fL (9.4-12.3); Monocytes Absolute Auto 0.4 X10*3/uL (0.1-1.2); Monocytes Percent Auto 7.1 % (2-11); Neutrophils Absolute Auto 5.1 x10*3/uL (2.0-8.3); Neutrophils Percent Auto 82.3 % (45-73); Platelet Count 155 X10*3/uL (160-400); Red Blood Count 4.77 X10*6/uL (4.20-5.50); Red Cell Distribution Width 13.1 % (11.0-16.0); White Blood Count 6.2 X10*3/uL (4.8-10.8)
[2024-11-20 18:48] LABS: Ammonia 25 umol/L (13-55)
[2024-11-20 18:58] LABS: Alanine Aminotransferase 18 U/L (0-31); Albumin Level 3.9 g/dL (3.5-5.0); Alkaline Phosphatase 96 U/L (39-117); Anion Gap 14 (12-20); Aspartate Amino Transferase 26 U/L (5-31); Bilirubin Direct 0.2 mg/dL (0.0-0.5); Bilirubin Total 0.4 mg/dL (0.0-1.0); Blood Urea Nitrogen 19 mg/dL (9-16); Calcium 9.4 mg/dL (8.4-10.2); Carbon Dioxide 26 mmol/L (22-29); Chloride 106 mmol/L (96-108); Creatinine Clr Calc Pharmacy 44.3; Estimated Glomerular Filt Rate > 60; Glucose Random 104 mg/dL (60-115); Magnesium 2.2 mg/dL (1.6-2.6); Potassium 4.4 mmol/L (3.3-5.1); Sodium 142 mmol/L (135-145); Total Protein 6.6 g/dL (6.5-8.0)
[2024-11-20 19:05] LABS: Troponin-I High Sensitivity 3.1 ng/L (<3.5-17.0)
[2024-11-20 19:22] LABS: Appearance Urine Clear; Color Urine Yellow; Glucose Urine UA Negative (Negative); Leukocyte Esterase Urine Small (1+) (Negative); Nitrite Urine Negative (Negative); Specific Gravity - Urine 1.025 (1.005-1.025); UMIC TRIGGER UACC YES; Urine Blood Negative (Negative); Urine Ketones Trace mg/dL (Negative); Urine Protein 30 (1+) mg/dL (Neg-Trace)
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
[2024-11-20 20:08] LABS: Bacteria Urine None Seen (None Seen); Squamous Epithelial Cell Urine 0-2 /HPF (0-2); UACC Culture Trigger YES
[2024-11-20 20:30] VITALS: BP 134/76; PULSE 83; RESP 18; TEMP 36.1; O2SAT 98
--- NOTE | 2024-11-20 20:32 | PC.NURSE ---
Patient requested and provided with sun butter sandwich and edenilson mildred, tolerated well.
[2024-11-20 20:47] VITALS: BP 134/76; PULSE 83; RESP 18; TEMP 36.1; O2SAT 98
== END 2024-11-20 20:47 | disposition home or self-care (01) ==
PROVIDERS: Physician Assistant Medical; Emergency Provider Emergency Medicine
DX: T67.5XXA Heat exhaustion, unspecified, initial encounter (principal); R19.7 Diarrhea, unspecified; R41.82 Altered mental status, unspecified; R94.31 Abnormal electrocardiogram [ECG] [EKG]; X58.XXXA Exposure to other specified factors, initial encounter; Y93.9 Activity, unspecified; Y92.9 Unspecified place or not applicable; Y99.8 Other external cause status; Z79.899 Other long term (current) drug therapy
CPT/HCPCS: 36415; 80048; 80076; 81001; 82140; 82550; 83735; 84484; 85025; 87086; 93005; 99283; 99285

== ENCOUNTER → 2024-11-20 18:05 | Outpatient (BNV) | payer MEDICARE, SELFPAY | PROVIDERS: Emergency Provider Emergency Medicine; Visit Provider Internal Medicine | DX: R41.82 Altered mental status, unspecified (principal) | CPT/HCPCS: 93010 ==

== ENCOUNTER 2024-11-27 12:00 | Outpatient (AMB) | payer MEDICARE, SELFPAY ==
[2024-11-27 12:23] VITALS: BP 112/72; BMI 18.7
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
== END 2024-11-27 12:59 | disposition home or self-care (01) ==
LOC: HO.HMCH 12:01
PROVIDERS: PCP Internal Medicine; Visit Provider Internal Medicine
DX: R41.89 Other symptoms and signs involving cognitive functions and awareness (principal)

== ENCOUNTER → 2024-11-27 12:00 | Outpatient (BNVA) | payer MEDICARE, SELFPAY | PROVIDERS: PCP Internal Medicine; Visit Provider Internal Medicine | DX: R41.89 Other symptoms and signs involving cognitive functions and awareness (principal); R41.0 Disorientation, unspecified | CPT/HCPCS: 99212 ==

== ENCOUNTER 2024-12-02 16:11 | Emergency (ER) | payer MEDICARE, SELFPAY ==
--- NOTE | 2024-12-02 16:17 | ED_ITS ---
HPI - General Adult General Chief complaint: General Medical Stated complaint: ? depression,just needs to talk to someone Time Seen by Provider: 12/02/24 18:12 Source: patient Mode of arrival: ambulatory Limitations: no limitations History of Present Illness ED Provider: Luz Marina Quan PA-C HPI narrative: Patient is an 79 year old assigned female at with a history of dementia, dyslipidemia, and hearing loss presenting to the emergency department today with depression and feeling as though she needs to speak to someone. Patient denies any thoughts of hurting herself or anyone else. Patient denies any dizziness, lightheadedness, abdominal pain, nausea, vomiting, fever, chills, blurry vision, double vision, loss of vision, chest pain, difficulty breathing, shortness of breath, back pain, night sweats, pain with urination, increased urinary frequency, increased urinary urgency, blood in her urine or stool, syncope or a near syncopal episode, recent trauma or falls, bowel incontinence, bladder incontinence, or any other complaints at this time. Relieving factors: none Exacerbating factors: none Associated symptoms: denies other symptoms Treatments prior to arrival: none Related Data Home Medications ?Medication ?Instructions ?Recorded ?Confirmed No Known Home Meds 06/10/23 08/17/24 Allergies Allergy/AdvReac Type Severity Reaction Status Date / Time seasonal Allergy Unknown Unknown Uncoded 12/02/24 16:21 Review of Systems 2 Constitutional: Constitutional: Reports no additional constitutional complaints, Denies chills, Denies fever(s) and Denies night sweats Eyes: Eyes: Reports no additional eye complaints, Denies blurry vision, Denies change in vision, Denies diplopia, Denies eye discharge, Denies loss of vision and Denies eye pain ENT: Denies dizziness Cardiovascular: Cardiovascular: Reports no additional cardiovascular complaints, Denies chest pain, Denies lightheadedness, Denies Loss of Consciousness and Denies dyspnea Respiratory: Respiratory: Reports no additional respiratory complaints and Denies dyspnea Gastrointestinal: Gastrointestinal: Reports no additional gastrointestinal complaints, Denies abdominal pain, Denies melena, Denies hematochezia, Denies change in bowel habits and Denies change in stool character Genitourinary: Genitourinary: Denies hematuria, Denies urinary frequency, Denies dysuria, Denies urinary incontinence, Denies urinary hesitancy and Denies urinary urgency Musculoskeletal: Musculoskeletal: Reports no additional musculoskeletal complaints, Denies numbness and Denies tingling Neurologic: Denies dizziness, Denies loss of vision, Denies numbness and Denies tingling Psychiatric: Psychiatric: Reports no additional psychiatric complaints, Reports depression, Denies homicidal ideation and Denies suicidal ideation Endocrine: Endocrine: Reports no additional endocrine complaints Hematologic/Lymphatic: Hematologic/Lymphatic: Reports no additional hematologic/lymphatic complaints Allergic/Immunologic: Allergic/Immunologic: Reports no additional allergic/immunologic complaints PMFSH Past Medical History Attestation statement: The following information was validated with the patient. Source: old records reviewed and nursing notes reviewed Medical History Elevated BP without diagnosis of hypertension Transaminitis Leukopenia Hypovitaminosis D Dyslipidemia Surgical History No pertinent past surgical history Family History Family History Father No problems noted. Mother Hypertension Stroke Brother No problems noted. Brother No problems noted. Sister No problems noted. Sister No problems noted. Social History Social History Housing: House Alcohol intake: former Patient Tobacco Use Status: Never used Tobacco e-Cigarette/Vaping Use: Never Used Second Hand Smoke Exposure: No Advance Directives: Yes Advance Directives on File: Yes Advance Directives Date on File: 08/07/21 service: No Current occupational status: retired Current occupational exposures/hazards: No Cognitive needs: No Hearing needs: No Vision needs: No Physical Exam ED Vital Signs: Vital Signs - 24 hr 12/02/24 16:18 Temperature 98.3 F Pulse Rate 85 Respiratory Rate 18 Blood Pressure 140/80 H Pulse Oximetry 95 Oxygen Delivery Method Room Air BMI result Body Mass Index 17.9 Const General: cooperative, no acute distress, alert and awake Nutritional Appearance: well nourished Orientation/consciousness: patient oriented x3 HENMT Head: Yes normal to inspection and Yes atraumatic Ears: hearing grossly normal bilaterally and external ears normal General nose exam: Normal external nose present, no nasal discharge noted and no epistaxis Face and sinus: Yes normal facial exam, No abrasion and No laceration Mouth: Normal oral and palatal mucosa present, no drooling and no muffled voice Eyes General: appearance normal, both eyes and all related structures Periorbital: periorbital findings normal Eyelids: Yes eyelids normal Conjunctivae: conjunctivae normal Pupils: Equal, round and reactive pupils present EOM: EOMs intact bilaterally Neck Neck: Yes normal visual inspection, Yes full ROM and Yes no lymphadenopathy Resp Effort & Inspection: normal respiratory effort and able to speak in complete sentences Neuro General: patient oriented x3, moves all extremities and CN's II-XI intact bilaterally Cranial nerves: Yes Equal, round and reactive pupils present Cognition (Neuro): normal cognition Extrem General: Yes normal to inspection, Yes full ROM and Yes capillary refill normal Psych Appearance: grossly normal Mental Status: mental status grossly normal Affect: normal affect Attitude: cooperative Thought process: Normal thought process present Thought content: Normal thought content present Insight: Good insight present (Psych) Course Course Course Narrative: RME performed by Luz Marina Quan PA-C. Patient is an 79 year old assigned female at presenting to the emergency department with increased stress and depression. Detailed physical exam and review of systems are deferred to the activities officer. Patient placed back in the waiting room pending room availability. Medical Decision Making Medical Decision Making MDM Narrative: Patient is an 79 year old assigned female at with a history of dementia, dyslipidemia, and hearing loss presenting to the emergency department today with depression and feeling as though she needs to speak to someone. Patient's physical exam was unremarkable. Patient's blood work was unremarkable. Patient's EKG was unremarkable. I explained my physical exam findings as well as all test results to the patient. I answered all questions asked by the patient. CARE team met with the patient and recommended the patient connecting with elder services which they are sending referrals for. I stressed the importance of the patient taking her medication as directed (either prescribed or as the over the counter packaging recommends). I stressed the importance of the patient following up with her primary care provider. I stressed the importance of the patient returning to the emergency department immediately if her symptoms were to worsen or if she were to develop any thoughts of hurting herself, thoughts of hurting others, dizziness, shortness of breath, difficulty breathing, chest pain, blurry vision, loss of vision, nausea, vomiting, abdominal pain, fever, chills, back pain, or any other complaints. Patient verbalized agreement and understanding with this treatment plan and discharge. Differential Diagnosis Differential Diagnoses: The differential diagnosis associated with the presentation includes Depression Loneliness Admission/Observation Consideration of admission/observation: Escalation of care including admission/observation considered Patient would have been admitted to the hospital had her work up had any findings where hospital admission was appropriate and her clinical presentation warranted hospital admission. Consult Healthcare Provider Management of the patient was discussed with: Behavioral Health Provider (Spoke with CARE team as noted in the MDM Rationale portion of this note. ) Lab Data [facility] Lab Attestation statement: I reviewed the patient's lab results. My interpretation of these results are in the MDM Rationale portion of this note. 12/02/24 16:43 12/02/24 16:43 Labs: Lab Results 12/02/24 Range/Units 16:43 WBC 4.9 (4.8-10.8) X10*3/uL RBC 4.62 (4.20-5.50) X10*6/uL Hgb 13.3 (12.0-16.0) g/dl Hct 40.3 (37.0-47.0) % MCV 87.2 (80.0-98.0) fL MCH 28.8 (27.0-33.0) pg MCHC 33.0 (31.0-35.0) g/dl RDW 13.2 (11.0-16.0) % Plt Count 168 (160-400) X10*3/uL MPV 9.9 (9.4-12.3) fL Immature Gran % (Auto) 0.2 (0.0-0.4) % Neut % (Auto) 66.8 (45-73) % Lymph % (Auto) 19.2 L (20-40) % Andrews % (Auto) 11.6 H (2-11) % Eos % (Auto) 1.0 (0-4) % Baso % (Auto) 1.2 (0-2) % Lymph # (Auto) 0.9 L (1.2-4.9) X10*3/uL [place] # (Auto) 0.6 (0.1-1.2) X10*3/uL Eos # (Auto) 0.1 (0.0-0.4) X10*3/uL Baso # (Auto) 0.1 (0.0-0.2) X10*3/uL Abs Immat Gran (auto) 0.01 (0.00-0.03) X10*3/uL Absolute Neuts (auto) 3.3 (2.0-8.3) x10*3/uL Absolute Nucleated RBC 0.000 (0.0-0.012) X10*3/uL Nucleated RBC % (auto) 0.0 (0.0-0.2) /100WBC Sodium 144 (135-145) mmol/L Potassium 4.3 (3.3-5.1) mmol/L Chloride 109 H (96-108) mmol/L Carbon Dioxide 27 (22-29) mmol/L Anion Gap 12 (12-20) BUN 21 H (9-16) mg/dL Creatinine 0.73 (0.5-1.4) mg/dL Estim Creat Clear Calc 45.2 Estimated GFR > 60 Random Glucose 89 (60-115) mg/dL Calcium 8.9 (8.4-10.2) mg/dL Total Bilirubin 0.4 (0.0-1.0) mg/dL AST 24 (5-31) U/L ALT 14 (0-31) U/L Alkaline Phosphatase 91 (39-117) U/L Total Protein 6.4 L (6.5-8.0) g/dL Albumin 3.9 (3.5-5.0) g/dL Salicylates < 5.0 L (15-30) mg/dL Acetaminophen < 3 (<30) mcg/mL Ethyl Alcohol < 10 mg/dL COVID-19 ([facility]ALI) Negative (Negative) COVID-19 Clin Com See Note Independent Interpretation I performed an independent interpretation of an: EKG Interpretation: I independently interpreted this EKG and am in agreement with the below findings: Vent. Rate: 77 BPM Atrial Rate: 77 BPM P-R Int: 164 ms QRS Dur: 76 ms QT Int: 362 ms P-R-T Axes: 52 49 62 degrees QTcB Int: 409 ms Normal sinus rhythm Septal infarct, age undetermined DD/ 1630 Discharge Plan Discharge Clinical Impression: Depression Patient Disposition: Home, Self-Care Instructions: Depression (ED) Additional Instructions: Follow up with your primary care provider. Return to the emergency department immediately if your symptoms worsen or if you develop any numbness, tingling, dizziness, shortness of breath, difficulty breathing, chest pain, blurry vision, loss of vision, nausea, vomiting, abdominal pain, fever, chills, back pain, or any other complaints. You were seen in our Emergency Department today for a concern regarding your mental / behavioral behavioral health. It is important after this visit today that you follow up with either your mental / behavioral health or primary care provider within 7 days (from today).? Return for any worsening symptoms or concerns such as thoughts of harming yourself or others. Please call 911 immediately if you feel your mental health is worsening.? National Suicide and Crisis Lifeline: Available 24 hours a day, 7 days a week, 365 days a year Dial 988 with any telephone to speak to someone immediately [facility] (Mental / Behavioral health therapist: [address] [place] [address] [facility]: [address] [place] [address] Open from 10am - 12pm (walk ins welcome) [facility] Crisis Services: [address] [place] [address] Walk in hours from 10am - 12pm Behavioral health Network: [address] [place] [address] [address] [place] [id number] Wednesday through Wednesday 8am - 8pm Wednesday and Wednesday 9am - 5pm Prescriptions: No Action No Known Home Meds Referrals: Alfreda Sotelo MD [Primary Care Provider, Internal Medicine] Print Language: Sinhala
[2024-12-02 16:18] VITALS: BP 140/80; PULSE 85; RESP 18; TEMP 36.8; O2SAT 95; BMI 17.9
--- NOTE | 2024-12-02 16:20 | ECG_ITS ---
Test Reason : DEPRESSION Blood Pressure : */* mmHG Vent. Rate : 77 BPM Atrial Rate : 77 BPM P-R Int : 164 ms QRS Dur : 76 ms QT Int : 362 ms P-R-T Axes : 52 49 62 degrees QTcB Int : 409 ms Normal sinus rhythm Septal infarct , age undetermined Abnormal ECG When compared with ECG of 20-Nov-2024 18:18, Septal infarct is now Present Referred By: Luz Marina Quan Electronically Signed By: JOJO BRADY MD
[2024-12-02 16:50] LABS: MANUAL DIFF FLAG NO
[2024-12-02 16:51] LABS: Hematocrit 40.3 % (37.0-47.0); Hemoglobin 13.3 g/dl (12.0-16.0); Imm Gran Abs Auto 0.01 X10*3/uL (0.00-0.03); Imm Gran Pct Auto 0.2 % (0.0-0.4); Lymphocytes Absolute Auto 0.9 X10*3/uL (1.2-4.9); Mean Corpuscular HGB Conc 33.0 g/dl (31.0-35.0); Mean Corpuscular Hemoglobin 28.8 pg (27.0-33.0); Mean Corpuscular Volume 87.2 fL (80.0-98.0); NRBC Abs Auto 0.000 X10*3/uL (0.0-0.012); NRBC Pct Auto 0.0 /100WBC (0.0-0.2); Platelet Count 168 X10*3/uL (160-400); Red Blood Count 4.62 X10*6/uL (4.20-5.50); White Blood Count 4.9 X10*3/uL (4.8-10.8)
[2024-12-02 17:05] LABS: COVID-19 Test Negative (Negative); IDNOW Serial# 55D5AD1C
[2024-12-02 17:09] LABS: Acetaminophen LAB < 3 mcg/mL (<30); Salicylate < 5.0 mg/dL (15-30)
[2024-12-02 17:13] LABS: Alanine Aminotransferase 14 U/L (0-31); Albumin Level 3.9 g/dL (3.5-5.0); Alkaline Phosphatase 91 U/L (39-117); Anion Gap 12 (12-20); Aspartate Amino Transferase 24 U/L (5-31); Blood Urea Nitrogen 21 mg/dL (9-16); Calcium 8.9 mg/dL (8.4-10.2); Carbon Dioxide 27 mmol/L (22-29); Chloride 109 mmol/L (96-108); Creatinine Clr Calc Pharmacy 45.2; Estimated Glomerular Filt Rate > 60; Potassium 4.3 mmol/L (3.3-5.1); Sodium 144 mmol/L (135-145); Total Protein 6.4 g/dL (6.5-8.0)
--- NOTE | 2024-12-02 18:06 | PC.NURSE ---
patient given snack as requested.
[2024-12-02 18:33] VITALS: BP 158/84; PULSE 80; RESP 14; TEMP 36.6; O2SAT 100
== END 2024-12-02 18:34 | disposition home or self-care (01) ==
PROVIDERS: Physician Assistant Medical; Emergency Provider Internal Medicine; PCP Internal Medicine
DX: F32.A Depression, unspecified (principal); Z11.52 Encounter for screening for COVID-19
CPT/HCPCS: 80053; 80143; 80179; 80307; 85025; 87635; 93005; 99283; 99284; S9485

== ENCOUNTER → 2024-12-02 16:20 | Outpatient (BNV) | payer MEDICARE, SELFPAY | PROVIDERS: Emergency Provider Internal Medicine; PCP Internal Medicine; Visit Provider Internal Medicine Cardiovascular Disease | DX: R94.31 Abnormal electrocardiogram [ECG] [EKG] (principal); F32.A Depression, unspecified | CPT/HCPCS: 93010 ==

== ENCOUNTER 2025-01-12 22:24 | Emergency (ER) | payer MEDICARE, SELFPAY ==
[2025-01-12 22:35] VITALS: BP 133/62; BP 134/92; PULSE 80; PULSE 97; RESP 16; TEMP 36.8; O2SAT 96; O2SAT 97; BMI 22.3
[2025-01-12 23:10] LABS: Hematocrit 37.4 % (37.0-47.0); Hemoglobin 12.5 g/dl (12.0-16.0); Imm Gran Abs Auto 0.02 X10*3/uL (0.00-0.03); Imm Gran Pct Auto 0.3 % (0.0-0.4); Lymphocytes Absolute Auto 1.0 X10*3/uL (1.2-4.9); MANUAL DIFF FLAG NO; Mean Corpuscular HGB Conc 33.4 g/dl (31.0-35.0); Mean Corpuscular Hemoglobin 29.3 pg (27.0-33.0); Mean Corpuscular Volume 87.8 fL (80.0-98.0); NRBC Abs Auto 0.000 X10*3/uL (0.0-0.012); NRBC Pct Auto 0.0 /100WBC (0.0-0.2); Platelet Count 150 X10*3/uL (160-400); Red Blood Count 4.26 X10*6/uL (4.20-5.50); White Blood Count 6.4 X10*3/uL (4.8-10.8)
[2025-01-12 23:23] LABS: Alanine Aminotransferase 16 U/L (0-31); Albumin Level 3.8 g/dL (3.5-5.0); Alkaline Phosphatase 86 U/L (39-117); Anion Gap 9 (12-20); Aspartate Amino Transferase 26 U/L (5-31); Blood Urea Nitrogen 35 mg/dL (9-16); Calcium 8.6 mg/dL (8.4-10.2); Carbon Dioxide 24 mmol/L (22-29); Chloride 109 mmol/L (96-108); Creatinine Clr Calc Pharmacy 35.4; Estimated Glomerular Filt Rate 57; Potassium 4.2 mmol/L (3.3-5.1); Sodium 138 mmol/L (135-145); Total Protein 6.2 g/dL (6.5-8.0)
--- NOTE | 2025-01-13 01:03 | ED.GENADULT ---
HPI - General Adult General Chief complaint: Altered Mental Status Stated complaint: AMS Time Seen by Provider: 01/13/25 00:01 Source: patient and EMS Mode of arrival: EMS Limitations: no limitations History of Present Illness ED Provider: LALITHA HPI narrative: 79 yo female with PMH of dementia, HLD, hearing loss who lives alone and recently states she has heard some noises at her home late at night and she becomes scared and admits she has called the police numerous times. She has no SI/HI. She is alert and oriented here. She is clean and appears well nourished. She has family but does live alone. She feels safe at home but does not if she feels scared she thought she could call the police. She is not confused she reports the same story to me as she does the RN - there are no flashing lights or peoples faces she just hears noises. complaint: fear Onset (ago): week(s) Severity: mild Relieving factors: none Exacerbating factors: none Associated symptoms: denies other symptoms Treatments prior to arrival: none Related Data Home Medications ?Medication ?Instructions ?Recorded ?Confirmed No Known Home Meds 06/10/23 08/17/24 Allergies Allergy/AdvReac Type Severity Reaction Status Date / Time seasonal Allergy Unknown Unknown Uncoded 01/12/25 22:37 Review of Systems Review of Systems: Constitutional : No Fever, No Chills ENT/Mouth : No Ear Pain, No Nasal Congestion, No sore throat Eyes: No Eye Pain, No Swelling, No Redness Cardiovascular : No Chest Pain, No SOB Respiratory : No Cough, No Sputum, No Dyspnea Gastrointestinal : No Nausea, No Vomiting, No Diarrhea, No Hematochezia, No Melena Genitourinary : No Dysuria, No Urinary Frequency, No Hematuria Musculoskeletal : No Myalgias Skin : No Skin Lesions, No rash Neuro : No Weakness, No Numbness, No Paresthesias, No Dizziness, No Headache Psych : positive Anxiety, no Depression, no SI/HI, no AH/VH All other systems reviewed and are negative PMFSH Past Medical History Attestation statement: The following information was validated with the patient. Source: old records reviewed Medical History Elevated BP without diagnosis of hypertension Transaminitis Leukopenia Hypovitaminosis D Dyslipidemia Surgical History No pertinent past surgical history Family History Family History Father No problems noted. Mother Hypertension Stroke Brother No problems noted. Brother No problems noted. Sister No problems noted. Sister No problems noted. Social History Social History Housing: House Alcohol intake: former Patient Tobacco Use Status: Never used Tobacco e-Cigarette/Vaping Use: Never Used Second Hand Smoke Exposure: No Advance Directives: Yes Advance Directives on File: Yes Advance Directives Date on File: 08/07/21 service: No Current occupational status: retired Current occupational exposures/hazards: No Cognitive needs: No Hearing needs: No Vision needs: No Physical Exam ED Vital Signs: Vital Signs - 24 hr 01/12/25 22:35 Temperature 98.3 F Pulse Rate 80 Respiratory Rate 16 Blood Pressure 133/62 Pulse Oximetry 96 Oxygen Delivery Method Room Air BMI result Body Mass Index 22.3 Appearance: Alert. Oriented X3. No acute distress. well kempt, well nourished, steady gait, slightly upset she is here but very reasonable Eyes: Pupils equal, round and reactive to light. ENT: Pharynx normal. Neck: Normal inspection. Neck supple. CVS: Normal heart rate and rhythm. Pulses normal. Respiratory: No respiratory distress. Breath sounds normal. Abdomen: Soft and nontender. Skin: Skin warm and dry. Normal skin color. Normal skin turgor. Extremities: No lower extremity edema. No calf ttp Neuro: Oriented X 3. No motor deficit. No sensory deficit. CN2-12 intact Medical Decision Making Medical Decision Making MDM Narrative: 79 yo female with PMH of dementia, HLD, hearing loss who called the police several times over the past month but she admits she gets scared she calls them she states she is not seeing things but when she hears a noise she calls them. She is alert and oriented x 3, she is not psychotic. She is coherent here and consistent. She is not a danger to herself and I do not feel she needs corwin psych we did try to call her family but no on answer. We will facilitate ride home. Differential Diagnosis Differential Diagnoses: The differential diagnosis associated with the presentation includes cognitive impairment Admission/Observation Consideration of admission/observation: Escalation of care including admission/observation considered no SI/HI, no psychosis I do not think she needs inpatient level of care Lab Data MDM Lab Attestation statement: I reviewed the patient's lab results. 01/12/25 23:05 01/12/25 23:05 Labs: Lab Results 01/12/25 Range/Units 23:05 WBC 6.4 (4.8-10.8) X10*3/uL RBC 4.26 (4.20-5.50) X10*6/uL Hgb 12.5 (12.0-16.0) g/dl Hct 37.4 (37.0-47.0) % MCV 87.8 (80.0-98.0) fL MCH 29.3 (27.0-33.0) pg MCHC 33.4 (31.0-35.0) g/dl RDW 13.6 (11.0-16.0) % Plt Count 150 L (160-400) X10*3/uL MPV 9.9 (9.4-12.3) fL Immature Gran % (Auto) 0.3 (0.0-0.4) % Neut % (Auto) 69.7 (45-73) % Lymph % (Auto) 15.8 L (20-40) % [place] % (Auto) 12.2 H (2-11) % Eos % (Auto) 1.1 (0-4) % Baso % (Auto) 0.9 (0-2) % Lymph # (Auto) 1.0 L (1.2-4.9) X10*3/uL [place] # (Auto) 0.8 (0.1-1.2) X10*3/uL Eos # (Auto) 0.1 (0.0-0.4) X10*3/uL Baso # (Auto) 0.1 (0.0-0.2) X10*3/uL Abs Immat Gran (auto) 0.02 (0.00-0.03) X10*3/uL Absolute Neuts (auto) 4.5 (2.0-8.3) x10*3/uL Absolute Nucleated RBC 0.000 (0.0-0.012) X10*3/uL Nucleated RBC % (auto) 0.0 (0.0-0.2) /100WBC Sodium 138 (135-145) mmol/L Potassium 4.2 (3.3-5.1) mmol/L Chloride 109 H (96-108) mmol/L Carbon Dioxide 24 (22-29) mmol/L Anion Gap 9 L (12-20) BUN 35 H (9-16) mg/dL Creatinine 0.94 (0.5-1.4) mg/dL Estim Creat Clear Calc 35.4 Estimated GFR 57 Random Glucose 98 (60-115) mg/dL Calcium 8.6 (8.4-10.2) mg/dL Total Bilirubin 0.5 (0.0-1.0) mg/dL AST 26 (5-31) U/L ALT 16 (0-31) U/L Alkaline Phosphatase 86 (39-117) U/L Total Protein 6.2 L (6.5-8.0) g/dL Albumin 3.8 (3.5-5.0) g/dL Independent Historian Clinical information obtained from an independent historian. History obtained from or confirmed by: EMS External Record Review External record reviewed: Outpatient record Discharge Plan Discharge Clinical Impression: Cognitive changes Patient Disposition: Home, Self-Care Instructions: Dementia (ED) Additional Instructions: your labs are reassuring you can return at any for pain, confusion, difficulty urinating or any other concerns Prescriptions: No Action No Known Home Meds Print Language: Palestinian
--- NOTE | 2025-01-13 07:19 | MHC.CARE ---
CARE Team was called upon to consult with patient who was requesting discharge, whose family was unreachable. Patient arrived to [facility] ED via EMS after calling the Nancy MILLER about a light that was shining from outside into her room and a noise she heard. Patient reports she is not delusional or traumatized and should be able to go home. Patient denies any safety concerns, but she lives alone and her family is not responding to attempts to reach them. Patient was d/c'd and brought home. Patient's niece's Vinicio, who was called several times, arrived to the ED reporting ongoing issues patient has been having over the past year. Vinicio reports he is patient's POA and HCP and has been working on guardianship. He states the initial request was denied by a mail carrier due to not possessing the correct paperwork. Vinicio reports continued efforts to gather the required documents in hopes of having the request approved in the near future. He reports patient has blown through $110,000 in the last year. She has been giving her money away, purchased a $36,000 truck and almost signed her home away. Strangers have reportedly been taking advantage of her and getting her to write checks in large amounts. 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 Vinicio agreed to leave the ED to check in with the patient at her home and was advised to bring her back to the [facility] ED for a mini mental status exam to determine if patient requires corwin psych. Patient was not officially referred to the CARE Team, so she was not formally assessed. Patient denies AVH/HI/SI and did not appear to experiencing any psychosis.
== END 2025-01-13 02:00 | disposition home or self-care (01) ==
PROVIDERS: Emergency Provider Emergency Medicine
DX: R41.82 Altered mental status, unspecified (principal); F09 Unspecified mental disorder due to known physiological condition
CPT/HCPCS: 36415; 80053; 85025; 99281; 99283

== ENCOUNTER 2025-03-27 08:11 | Outpatient (AMB) | payer MEDICARE, SELFPAY ==
--- NOTE | 2025-03-27 08:19 | A.OFFPC_ITS ---
Vital Signs 03/27/25 08:20 Height 5 ft 1 in Weight 110 lb 4 oz BMI 20.8 BP 130/70 Blood Pressure Location Lt brachial Position Sitting Pulse 60 Pulse Source Pulse Oximeter Temp 97.1 F Temp Source Temporal Artery Scan Pulse Oximetry (%) 93 Oxygen Delivery Method Room Air Intake Visit Reasons: annual exam/dementia Intake Note: Patient is here today for a physical. 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 She reports experiencing memory loss and does not recall a brain MRI from September of this year, which reportedly showed global cerebral atrophy. She has a scheduled appointment for a hearing test in April. She declines pneumonia and flu vaccine today. No need for mammogram, Pap smear or colonoscopy due to age. She is alone in the room and is awake, alert and oriented to person and place but not to time. She believes is 1987. The patient has no known drug allergies, takes no medications, and has no history of surgeries. She denies any history of smoking or alcohol consumption. She reports recent unintentional weight loss, which she attributes to frequent walking and reduced food intake. Her mother at age 66 from a stroke, and her father, who had a history of smoking, between the ages of 50 and 60 from breathing problems. [facility] Medical History (Updated 03/27/25 @ 08:41 by Alfreda Bledsoe MD) Elevated BP without diagnosis of hypertension Transaminitis Leukopenia Hypovitaminosis D Dyslipidemia Surgical History No pertinent past surgical history Family History Father No problems noted. Mother Hypertension Stroke Brother No problems noted. Brother No problems noted. Sister No problems noted. Sister No problems noted. Social History Housing: House Alcohol intake: former Patient Tobacco Use Status: Never used Tobacco e-Cigarette/Vaping Use: Never Used Second Hand Smoke Exposure: No Advance Directives Date on File: 08/07/21 service: No Current occupational status: retired Current occupational exposures/hazards: No Cognitive needs: No Hearing needs: No Vision needs: No Questionnaire Thrive Questionnaire Date Thrive assessed: 08/17/24 TUAN-7 AMB Questionnaire TUAN-7 Date TUAN - 7 assessed: 08/17/24 Source: Developed by Drs. Marcos Schmidt, Holli Loredo, Arnie Shook and colleagues, with an educational justina from [employer]. Review of Systems Const All systems reviewed & are unremarkable except as noted in HPI and below Card Denies chest pain at rest, Denies chest pain with activity, Denies edema, Denies irregular heart rhythm, Denies claudication, Denies dyspnea, Denies dyspnea on e xertion, Denies orthopnea, Denies paroxysmal nocturnal dyspnea and Denies slow heart rate Resp Denies cough, Denies dyspnea and Denies dyspnea on exertion Musc Denies atrophy, Denies deformity and Denies limited range of motion Skin/Breast Denies bleeding lesions, Denies changing lesions and Denies rash Physical exam (Primary Care) Vital Signs: Last Vital Signs Temp 97.1 F 03/27/25 08:20 Oxygen Delivery Method Room Air 03/27/25 08:20 BMI result Body Mass Index 20.8 Tobacco/Smoking Status: Tobacco use Status Tobacco use date assessed 08/17/24 11/27/24 12:25 Patient Tobacco Use Status Never used Tobacco 11/27/24 12:25 Tobacco use type 06/10/23 10:37 e-Cigarette/Vaping Use Never Used 11/27/24 12:25 Thrive Assessment: Date of Thrive Assessment Date Thrive assessed 08/17/24 11/27/24 12:25 Const General: cooperative, alert and awake Orientation/consciousness: oriented to person and oriented to place HENDE Head: Yes normal to inspection, Yes normocephalic and Yes atraumatic Ears: external ears normal Eyes General: appearance normal, both eyes and all related structures Eyelids: Yes eyelids normal Conjunctivae: conjunctivae normal Neck Neck: Yes normal visual inspection and Yes supple Resp Effort & Inspection: normal respiratory effort Auscultation: clear to auscultation bilaterally Cardio Jugular venous distension: no JVD Rate: regular rate Rhythm: regular rhythm Heart sounds: S1 normal heart sound present and S2 normal heart sound present GI Inspection: Yes normal to inspection Palpation (GI): Soft to palpation and nontender Auscultation: normal bowel sounds Skin General skin exam: no rashes or lesions noted Neuro General: oriented to person, oriented to place and no focal motor deficits Extrem General: Yes full ROM Psych Appearance: grossly normal Coding Level of Care Code Est Pt Level 3 (10212) Est Pt Prev Care >65y(77376) Diagnoses Physical exam Z00.00 Dementia F03.90 Time Spent (min) 32 Assessment & Plan Assessment & Plan (1) Physical exam: Code(s): Z00.00 - Encounter for general adult medical examination without abnormal findings Category: Medical (2) Dementia: Code(s): F03.90 - Unspecified dementia, unspecified severity, without behavioral disturbance, psychotic disturbance, mood disturbance, and anxiety Category: Medical Plan Plan 1. Physical exam Repeat in a year. 2. Cognitive Impairment The patient exhibits significant memory loss and is disoriented to time, which is concerning for cognitive impairment. A brain MRI from September of this year revealed global cerebral atrophy. To investigate for reversible causes, additional non-fasting blood work will be ordered today. A referral will be placed with Neurology for further evaluation and management. Orders: Orders Complete Blood Count Auto Diff Today F03.90 - Unspecified dementia, unspecified severity, without behavioral disturbance, psychotic disturbance, mood disturbance, and anxiety Syphilis Screen Today F03.90 - Unspecified dementia, unspecified severity, without behavioral disturbance, psychotic disturbance, mood disturbance, and anxiety Vitamin D 25-OH Total Today E55.9 - Vitamin D deficiency, unspecified Vitamin A Today R41.89 - Other symptoms and signs involving cognitive functions and awareness Thyroid Stimulating Hormone Today F03.90 - Unspecified dementia, unspecified severity, without behavioral disturbance, psychotic disturbance, mood disturbance, and anxiety Vitamin B12 and Folate Today E53.8 - Deficiency of other specified B group vitamins, F03.90 - Unspecified dementia, unspecified severity, without behavioral disturbance, psychotic disturbance, mood disturbance, and anxiety Comprehensive Met. Panel Today F03.90 - Unspecified dementia, unspecified severity, without behavioral disturbance, psychotic disturbance, mood disturbance, and anxiety Ammonia Today R41.89 - Other symptoms and signs involving cognitive functions and awareness Referrals Neurology Referral F03.90 - Unspecified dementia, unspecified severity, without behavioral disturbance, psychotic disturbance, mood disturbance, and anxiety
[2025-03-27 08:20] VITALS: BP 130/70; PULSE 60; TEMP 36.2; O2SAT 93; BMI 20.8
== END 2025-03-27 08:37 | disposition home or self-care (01) ==
PROVIDERS: PCP Internal Medicine; Visit Provider Internal Medicine
DX: Z00.00 Encounter for general adult medical examination without abnormal findings (principal); F03.90 Unspecified dementia, unspecified severity, without behavioral disturbance, psychotic disturbance, mood disturbance, and anxiety

== ENCOUNTER → 2025-03-27 08:11 | Outpatient (BNVA) | payer MEDICARE, SELFPAY | PROVIDERS: PCP Internal Medicine; Visit Provider Internal Medicine | DX: Z00.00 Encounter for general adult medical examination without abnormal findings (principal); F03.90 Unspecified dementia, unspecified severity, without behavioral disturbance, psychotic disturbance, mood disturbance, and anxiety; R41.89 Other symptoms and signs involving cognitive functions and awareness | CPT/HCPCS: 99212; 99397 ==